=== PATIENT | female | born 1945 | race Caucasian/White ===

== ENCOUNTER 2022-10-01 08:55 | Inpatient (IN) | payer MEDICARE, OTHER ==
[2022-10-01] VITALS (13 sets, daily range): BP systolic 85–154; BP diastolic 62–83; TEMP 98–98.2; O2SAT 91–96
[~2022-10-01] VITALS: Ht 170.2 cm; Wt 112.5 kg
[~2022-10-01 08:55] MED LIST: ETOMIDATE 20 MG/10 ML VIAL ONE
[2022-10-01] MEDS ORDERED: HALOPERIDOL LACTATE 5 MG/1 ML VIAL ONE (09:22)
[2022-10-01] MEDS ORDERED: LORAZEPAM 2 MG/1 ML VIAL ONE ×2 (09:22→11:22)
[2022-10-01 09:49] LABS: ABG BASE EXCESS -0.6 mmol/L; ABG HCO3 24.1 mmol/L; ABG PCO2 39.9 mmHg (35.0-45.0); ABG PH 7.399 (7.350-7.450); ABG PO2 70.1 mmHg (75.0-100.0); ABG SITE LEFT RADIAL; ABG TOTAL HEMOGLOBIN 12.8 G/dL (12.0-16.0); COHb 0.5 % (0.5-1.5); MetHb 0.2 % (0.0-1.5); O2Hb 93.6 % (94.0-97.0); VENT MODE Nasal Cannula
[2022-10-01] MEDS ORDERED: ALBUTEROL SULFATE 2.5 MG/3 ML NEBU ONE (09:52)
[2022-10-01] MEDS ORDERED: IPRATROPIUM BROMIDE 0.5 MG/2.5 ML NEBU ONE (09:52)
[2022-10-01] MEDS ORDERED: LORAZEPAM 2 MG/1 ML VIAL IV ONE ×3 (10:00→14:45)
[2022-10-01] MEDS ORDERED: DILTIAZEM HCL 25 MG IV IV ONE (10:00)
[2022-10-01] MEDS ORDERED: HALOPERIDOL LACTATE 5 MG/1 ML VIAL IM ONE (10:00)
[2022-10-01 10:09] LABS: BASOPHILS % (AUTO) 0.3 % (0.0-2.0); DIFFERENTIAL COMMENT 0; EOSINOPHILS % (AUTO) 0.4 % (0.0-7.0); HEMATOCRIT 37.8 % (31.2-41.9); LYMPHOCYTES # (AUTO) 0.4 K/uL (0.8-4.8); LYMPHOCYTES % (AUTO) 3.8 % (20.5-51.5); MEAN CORPUSCULAR HEMOGLOBIN 29.1 uug (24.7-32.8); MEAN CORPUSCULAR HGB CONC 32 g/dL (32.3-35.6); MEAN CORPUSCULAR VOLUME 91.7 fL (75.5-95.3); MONOCYTES # (AUTO) 0.4 K/uL (0.1-1.30); MONOCYTES % (AUTO) 3.8 % (0.0-11.0); NEUTROPHILS # (AUTO) 9.9 K/uL (1.8-8.9); NEUTROPHILS % (AUTO) 91.7 % (38.5-71.5); PLATELET COUNT (AUTO) 355 K/uL (179-408); RED BLOOD CELL COUNT(AUTO) 4.13 MIL/uL (3.63-4.92); RED CELL DISTRIBUTION WIDTH 18.5 % (12.3-17.7); WHITE BLOOD COUNT (AUTO) 10.8 K/uL (3.8-11.8)
[2022-10-01] MEDS ORDERED: EMPA10TA PO (10:14)
[2022-10-01] MEDS ORDERED: PRAV10TA40 PO (10:14)
[2022-10-01] MEDS ORDERED: ALLOPURINOL PO (10:14)
[2022-10-01] MEDS ORDERED: TRAZ-257 PO (10:14)
[2022-10-01] MEDS ORDERED: DOXE50CA4 PO (10:14)
[2022-10-01] MEDS ORDERED: BUPR1FIL3 SL (10:14)
[2022-10-01] MEDS ORDERED: APIX5TAB PO (10:14)
[2022-10-01] MEDS ORDERED: DILTIAZEM PO (10:14)
[2022-10-01] MEDS ORDERED: CHLO25CA22 PO (10:14)
[2022-10-01] MEDS ORDERED: [UNRECOGNIZED DRUG - OTHER] (10:14)
[2022-10-01] MEDS ORDERED: VENL150C2 PO (10:14)
[2022-10-01 10:20] LABS: LIPASE 39 U/L (73-393)
[2022-10-01 10:22] LABS: ETHANOL < 3 MG/DL (0-10)
[2022-10-01] MEDS ORDERED: DILTIAZEM HCL 25 MG IV ONE (10:28)
[2022-10-01 10:37] LABS: LACTIC ACID 2.1 mmol/L (0.4-2.0)
[2022-10-01 11:06] LABS: CALCIUM 9.1 mg/dL (8.5-10.1); CARBON DIOXIDE 28 mmol/L (21-32); CHLORIDE 101 mmol/L (98-107); CREATININE 1.5 mg/dL (0.6-1.3); GLUCOSE 118 mg/dL (74-106); POTASSIUM 3.7 mmol/L (3.5-5.1); SODIUM SERUM 140 mmol/L (136-145); UREA NITROGEN, BLOOD 27 mg/dL (7-18)
[2022-10-01 11:08] LABS: *BILIRUBIN,URIN NEGATIVE (NEGATIVE); *BLOOD, URINE NEGATIVE (NEGATIVE); *CLARITY,URINE CLEAR (CLEAR); *COLOR,URINE YELLOW (YELLOW); *KETONES,URINE NEGATIVE (NEGATIVE); *PROTEIN,URINE NEGATIVE (NEGATIVE); *UROBILINOGEN,URINE 0.2 E.U./dl (NORMAL); LEUKOCYTE ESTERASE ,URINE NEGATIVE (NEGATIVE); NITRITE, URINE NEGATIVE (NEGATIVE); UGLUCOSE NEGATIVE (NEGATIVE)
[2022-10-01] MEDS ORDERED: MORPHINE SULFATE 4 MG/1 ML DISP.SYRIN ONE (11:13)
[2022-10-01] MEDS ORDERED: IV NORMAL SALINE 1000 ML BAG IV ONE ×2 (11:15→11:45)
[2022-10-01] MEDS ORDERED: methylPREDNISolone SOD SUCC 125 MG/2 ML VIAL IV ONE (11:15)
[2022-10-01] MEDS ORDERED: MORPHINE SULFATE 4 MG/1 ML DISP.SYRIN IV ONE (11:15)
[2022-10-01 11:20] LABS: ALANINE AMINOTRANSFERASE 18 U/L (14-59); ALKALINE PHOSPHATASE 88 U/L (50-136); ASPARTATE AMINOTRANSFERASE 13 U/L (15-37); BILIRUBIN,DIRECT 0.1 mg/dL (0.0-0.2); BILIRUBIN,TOTAL 0.3 mg/dL (0.2-1.0); NT-PRO BNP 1125 pg/mL (0-125); TOTAL PROTEIN, SERUM 7.2 g/dL (6.4-8.2)
[2022-10-01] MEDS ORDERED: methylPREDNISolone SOD SUCC 125 MG/2 ML VIAL ONE (11:20)
[2022-10-01 11:23] LABS: *AMPHETAMINE, URINE NEGATIVE (NEGATIVE); *BARBITURATE, URINE NEGATIVE (NEGATIVE); *BENZODIAZEPINE, URINE POSITIVE (NEGATIVE); *CANNABINOID, URINE NEGATIVE (NEGATIVE); *COCCAINE, URINE NEGATIVE (NEGATIVE); *OPIATE, URINE NEGATIVE (NEGATIVE); *PHENCYCLIDINE SCREEN,URINE NEGATIVE (NEGATIVE); FENTANYL, URINE NEGATIVE (NEGATIVE)
[2022-10-01] MEDS ORDERED: DILTIAZEM HCL IV 125 MG in IV NORMAL SALINE 100 ML IV PRN ×2 (11:45→12:00)
[2022-10-01] MEDS ORDERED: CHLORDIAZEPOXIDE HCL 25 MG CAPSULE PO PRN (12:00)
[2022-10-01] MEDS ORDERED: IV NS 1000 ML 1,000 ML IV PRN (12:00)
[2022-10-01] MEDS ORDERED: ONDANSETRON 4 MG/2 ML VIAL IV PRN (12:00)
[2022-10-01] MEDS ORDERED: MAGNESIUM HYDROXIDE 30 ML LIQUID UDC PO PRN (12:00)
[2022-10-01] MEDS ORDERED: DEXTROSE 50% 50 ML DISP.SYRIN IV PRN (12:00)
[2022-10-01] MEDS ORDERED: ACETAMINOPHEN 325 MG TABLET PO PRN (12:00)
[2022-10-01] MEDS ORDERED: REMEDY ESSENTIAL ZINC PASTE 113 GM TP PRN (12:00)
[2022-10-01] MEDS ORDERED: LORAZEPAM 2 MG/1 ML VIAL IV PRN (12:00)
[2022-10-01] MEDS ORDERED: LEVALBUTEROL HCL NEB 0.63 MG/3 ML NEBU NEB PRN (12:45)
[2022-10-01] MEDS: methylPREDNISolone SOD SUCC 40 MG/ML VIAL IV SCH ×2 (16:21→23:20)
[2022-10-01] MEDS: BLOOD SUGAR DIAGNOSTIC 1 EACH STRIP VI SCH ×2 (16:22→21:00)
[2022-10-01] MEDS ORDERED: ALLO100T56 PO (16:28)
[2022-10-01] MEDS ORDERED: DILT240C99 PO (16:28)
[2022-10-01] MEDS ORDERED: BUME2TAB7 PO (16:32)
[2022-10-01] MEDS ORDERED: MAGN400T41 PO (16:32)
[2022-10-01] MEDS ORDERED: MULT-1119 PO (16:32)
[2022-10-01] MEDS ORDERED: FERR-68 PO (16:32)
[2022-10-01] MEDS ORDERED: POTA-10 PO (16:32)
[2022-10-01] MEDS ORDERED: GABA-532 PO (16:32)
[2022-10-01] MEDS ORDERED: LEVO25TA9 PO (16:32)
[2022-10-01] MEDS: SUBOXONE SL SCH (16:37)
[2022-10-01] MEDS ORDERED: HALOPERIDOL LACTATE 5 MG/1 ML VIAL IM PRN (19:15)
[2022-10-01] MEDS: LORAZEPAM 2 MG/1 ML VIAL IV PRN (20:56)
[2022-10-01] MEDS: ATORVASTATIN 10 MG TABLET PO SCH (20:56)
[2022-10-01] MEDS: HYDROCODONE/APAP 10-325 MG TABLET PO PRN (20:58)
[2022-10-01] MEDS ORDERED: TRAZODONE 100 MG TABLET PO SCH (21:00)
[2022-10-02] VITALS (17 sets, daily range): BP systolic 120–151; BP diastolic 64–88; TEMP 97.5–98.2; O2SAT 93–95
[2022-10-02] MEDS: LORAZEPAM 2 MG/1 ML VIAL IV PRN (03:46)
[2022-10-02] MEDS: HYDROCODONE/APAP 10-325 MG TABLET PO PRN (04:10)
[2022-10-02 05:04] LABS: BASOPHILS % (AUTO) 0.1 % (0.0-2.0); HEMATOCRIT 36.8 % (31.2-41.9); HEMOGLOBIN 11.7 g/dL (10.9-14.3); LYMPHOCYTES # (AUTO) 0.5 K/uL (0.8-4.8); MEAN CORPUSCULAR HEMOGLOBIN 29.1 uug (24.7-32.8); MEAN CORPUSCULAR HGB CONC 32 g/dL (32.3-35.6); MEAN CORPUSCULAR VOLUME 91.6 fL (75.5-95.3); MONOCYTES # (AUTO) 0.1 K/uL (0.1-1.30); MONOCYTES % (AUTO) 1.4 % (0.0-11.0); NEUTROPHILS # (AUTO) 7.1 K/uL (1.8-8.9); NEUTROPHILS % (AUTO) 91.5 % (38.5-71.5); PLATELET COUNT (AUTO) 337 K/uL (179-408); RED BLOOD CELL COUNT(AUTO) 4.02 MIL/uL (3.63-4.92); RED CELL DISTRIBUTION WIDTH 18.7 % (12.3-17.7); WHITE BLOOD COUNT (AUTO) 7.8 K/uL (3.8-11.8)
[2022-10-02 05:23] LABS: CALCIUM 8.8 mg/dL (8.5-10.1); CREATININE 1.3 mg/dL (0.6-1.3); PHOSPHOROUS 3.4 mg/dL (2.5-4.9)
[2022-10-02 05:47] LABS: DIFFERENTIAL COMMENT 1
[2022-10-02] MEDS: BLOOD SUGAR DIAGNOSTIC 1 EACH STRIP VI SCH ×4 (07:05→21:20)
[2022-10-02] MEDS: SUBOXONE SL SCH ×3 (08:18→17:19)
[2022-10-02] MEDS: LEVOTHYROXINE SODIUM 25 MCG TABLET PO SCH (08:18)
[2022-10-02] MEDS: GABAPENTIN 100 MG CAPSULE PO SCH ×3 (08:18→17:19)
[2022-10-02] MEDS: MAGNESIUM OXIDE 400 MG TABLET PO SCH (08:19)
[2022-10-02] MEDS: MULTIVITAMINS,THERAPEUTIC TABLET PO SCH (08:19)
[2022-10-02] MEDS: ALLOPURINOL 100 MG TABLET PO SCH (08:19)
[2022-10-02] MEDS: APIXABAN 5 MG TABLET PO SCH ×2 (08:19→17:21)
[2022-10-02] MEDS: FERROUS SULFATE 325 MG TABEC PO SCH ×2 (08:19→17:19)
[2022-10-02] MEDS: GLUCERNA SHAKE 237 ML CAN PO SCH ×2 (08:22→17:20)
[2022-10-02] MEDS: methylPREDNISolone SOD SUCC 125 MG/2 ML VIAL IV SCH ×3 (08:22→21:11)
[2022-10-02] MEDS ORDERED: DOXEPIN 50 MG CAPSULE PO SCH (09:00)
[2022-10-02] MEDS ORDERED: ALLOPURINOL 100 MG TABLET PO SCH (09:00)
[2022-10-02] MEDS ORDERED: DOXEPIN 25 MG CAPSULE PO SCH (09:00)
[2022-10-02] MEDS ORDERED: Medication Not On Formulary EA (Pravastatin Sodium 1 TAB) PO SCH (09:00)
[2022-10-02] MEDS ORDERED: VENLAFAXINE XR 150 MG CAP.SR.24H PO SCH (09:00)
[2022-10-02] MEDS ORDERED: ALLOPURINOL PO SCH (09:00)
[2022-10-02] MEDS ORDERED: VENLAFAXINE XR 75 MG TAB.ER.24H PO SCH (09:00)
[2022-10-02] MEDS ORDERED: Empagliflozin (Jardiance) 10 MG) PO SCH (09:00)
[2022-10-02] MEDS: DILTIAZEM HCL CD 240 MG CAP.SR.24H PO SCH (09:10)
[2022-10-02] MEDS: DIGOXIN 500 MCG/2 ML AMP IV SCH ×3 (09:57→21:10)
[2022-10-02] MEDS ORDERED: CHLORDIAZEPOXIDE HCL 25 MG CAPSULE PO PRN (10:45)
[2022-10-02] MEDS ORDERED: DOXEPIN 25 MG CAPSULE PO PRN (10:45)
[2022-10-02] MEDS ORDERED: DOXEPIN 100 MG CAPSULE PO PRN (11:00)
[2022-10-02] MEDS: INSULIN REGULAR, HUMAN 300 UNIT/3 ML VIAL SQ PRN ×3 (12:04→21:33)
[2022-10-02] MEDS: CLONIDINE HCL 0.1 MG TABLET PO SCH (21:08)
[2022-10-02] MEDS: ATORVASTATIN 10 MG TABLET PO SCH (21:08)
[2022-10-03] VITALS: BP 126/89; TEMP 98; O2SAT 94
[2022-10-03 04:00] VITALS: BP 133/83; TEMP 97.7; O2SAT 94
[2022-10-03 04:50] LABS: BASOPHILS % (AUTO) 0.1 % (0.0-2.0); EOSINOPHILS % (AUTO) 0.1 % (0.0-7.0); HEMATOCRIT 38.7 % (31.2-41.9); LYMPHOCYTES # (AUTO) 0.6 K/uL (0.8-4.8); LYMPHOCYTES % (AUTO) 4.6 % (20.5-51.5); MEAN CORPUSCULAR HEMOGLOBIN 28.8 uug (24.7-32.8); MEAN CORPUSCULAR HGB CONC 31 g/dL (32.3-35.6); MEAN CORPUSCULAR VOLUME 93.3 fL (75.5-95.3); MONOCYTES # (AUTO) 0.2 K/uL (0.1-1.30); MONOCYTES % (AUTO) 1.6 % (0.0-11.0); NEUTROPHILS % (AUTO) 93.6 % (38.5-71.5); PLATELET COUNT (AUTO) 402 K/uL (179-408); RED BLOOD CELL COUNT(AUTO) 4.15 MIL/uL (3.63-4.92); RED CELL DISTRIBUTION WIDTH 19.1 % (12.3-17.7); WHITE BLOOD COUNT (AUTO) 13.9 K/uL (3.8-11.8)
[2022-10-03 04:55] LABS: DIFFERENTIAL COMMENT 1
[2022-10-03 04:58] LABS: CALCIUM 9.1 mg/dL (8.5-10.1); CREATININE 1.3 mg/dL (0.6-1.3); POTASSIUM 4.2 mmol/L (3.5-5.1)
[2022-10-03] MEDS ORDERED: HYDROCODONE/APAP 10-325 MG TABLET PO PRN (06:00)
[2022-10-03] MEDS: LEVOTHYROXINE SODIUM 25 MCG TABLET PO SCH (06:10)
[2022-10-03] MEDS: methylPREDNISolone SOD SUCC 125 MG/2 ML VIAL IV SCH (06:10)
[2022-10-03] MEDS ORDERED: CHLORDIAZEPOXIDE HCL 25 MG CAPSULE PO PRN (06:45)
[2022-10-03] MEDS: BLOOD SUGAR DIAGNOSTIC 1 EACH STRIP VI SCH ×4 (07:37→21:58)
[2022-10-03] MEDS ORDERED: VENLAFAXINE XR 75 MG TAB.ER.24H PO SCH (09:00)
[2022-10-03] MEDS: GABAPENTIN 100 MG CAPSULE PO SCH ×3 (09:09→18:07)
[2022-10-03] MEDS: ARIPIPRAZOLE 5 MG TABLET PO SCH (09:09)
[2022-10-03] MEDS: MAGNESIUM OXIDE 400 MG TABLET PO SCH (09:09)
[2022-10-03] MEDS: MULTIVITAMINS,THERAPEUTIC TABLET PO SCH (09:09)
[2022-10-03] MEDS: ALLOPURINOL 100 MG TABLET PO SCH (09:09)
[2022-10-03] MEDS: FERROUS SULFATE 325 MG TABEC PO SCH ×2 (09:10→18:07)
[2022-10-03] MEDS: VENLAFAXINE XR 150 MG CAP.SR.24H PO SCH (09:14)
[2022-10-03] MEDS: GLUCERNA SHAKE 237 ML CAN PO SCH ×2 (09:17→18:08)
[2022-10-03] MEDS: APIXABAN 5 MG TABLET PO SCH ×2 (09:18→18:09)
[2022-10-03] MEDS: DILTIAZEM HCL CD 240 MG CAP.SR.24H PO SCH (09:20)
[2022-10-03] MEDS: CLONIDINE HCL 0.1 MG TABLET PO SCH ×2 (09:21→20:56)
[2022-10-03] MEDS: SUBOXONE SL SCH ×3 (11:14→18:12)
[2022-10-03 11:31] VITALS: BP 105/53; TEMP 97.7; O2SAT 91
[2022-10-03] MEDS: INSULIN REGULAR, HUMAN 300 UNIT/3 ML VIAL SQ PRN ×3 (12:45→22:00)
[2022-10-03 16:05] VITALS: BP 134/64; TEMP 97.5; O2SAT 95
[2022-10-03 20:00] VITALS: BP 116/64; TEMP 97.8; O2SAT 96
[2022-10-03] MEDS: ATORVASTATIN 10 MG TABLET PO SCH (20:56)
[2022-10-04] VITALS (8 sets, daily range): BP systolic 109–121; BP diastolic 47–91; TEMP 97.6–98.5; O2SAT 93–97
[2022-10-04] MEDS: LEVOTHYROXINE SODIUM 25 MCG TABLET PO SCH (06:05)
[2022-10-04 06:16] LABS: HEMATOCRIT 37.4 % (31.2-41.9); HEMOGLOBIN 11.5 g/dL (10.9-14.3); LYMPHOCYTES # (AUTO) 1.1 K/uL (0.8-4.8); LYMPHOCYTES % (AUTO) 7.5 % (20.5-51.5); MEAN CORPUSCULAR HEMOGLOBIN 28.8 uug (24.7-32.8); MEAN CORPUSCULAR HGB CONC 31 g/dL (32.3-35.6); MEAN CORPUSCULAR VOLUME 93.5 fL (75.5-95.3); MONOCYTES # (AUTO) 0.9 K/uL (0.1-1.30); MONOCYTES % (AUTO) 5.9 % (0.0-11.0); NEUTROPHILS # (AUTO) 12.6 K/uL (1.8-8.9); NEUTROPHILS % (AUTO) 86.6 % (38.5-71.5); PLATELET COUNT (AUTO) 410 K/uL (179-408); RED CELL DISTRIBUTION WIDTH 18.2 % (12.3-17.7); WHITE BLOOD COUNT (AUTO) 14.5 K/uL (3.8-11.8)
[2022-10-04] MEDS: BLOOD SUGAR DIAGNOSTIC 1 EACH STRIP VI SCH ×3 (06:21→17:42)
[2022-10-04] MEDS: INSULIN REGULAR, HUMAN 300 UNIT/3 ML VIAL SQ PRN ×3 (06:22→17:45)
[2022-10-04 06:29] LABS: DIFFERENTIAL COMMENT 1
[2022-10-04 06:36] LABS: CALCIUM 8.8 mg/dL (8.5-10.1); CARBON DIOXIDE 31 mmol/L (21-32); CHLORIDE 104 mmol/L (98-107); CREATININE 1.6 mg/dL (0.6-1.3); GLUCOSE 148 mg/dL (74-106); POTASSIUM 4.5 mmol/L (3.5-5.1); SODIUM SERUM 140 mmol/L (136-145); UREA NITROGEN, BLOOD 44 mg/dL (7-18)
[2022-10-04] MEDS ORDERED: predniSONE 20 MG TABLET PO SCH (08:00)
[2022-10-04] MEDS: SUBOXONE SL SCH ×5 (09:00→18:33)
[2022-10-04] MEDS: DILTIAZEM HCL CD 240 MG CAP.SR.24H PO SCH (10:19)
[2022-10-04] MEDS: ARIPIPRAZOLE 5 MG TABLET PO SCH (10:19)
[2022-10-04] MEDS: FERROUS SULFATE 325 MG TABEC PO SCH ×2 (10:20→17:43)
[2022-10-04] MEDS: VENLAFAXINE XR 150 MG CAP.SR.24H PO SCH (10:21)
[2022-10-04] MEDS: MAGNESIUM OXIDE 400 MG TABLET PO SCH (10:21)
[2022-10-04] MEDS: MULTIVITAMINS,THERAPEUTIC TABLET PO SCH (10:22)
[2022-10-04] MEDS: GABAPENTIN 100 MG CAPSULE PO SCH ×3 (10:22→17:43)
[2022-10-04] MEDS: ALLOPURINOL 100 MG TABLET PO SCH (10:22)
[2022-10-04] MEDS: APIXABAN 5 MG TABLET PO SCH ×2 (10:24→17:42)
[2022-10-04] MEDS: GLUCERNA SHAKE 237 ML CAN PO SCH ×2 (10:24→17:00)
[2022-10-04] MEDS: CLONIDINE HCL 0.1 MG TABLET PO SCH (10:26)
[2022-10-04] MEDS ORDERED: FERR325T28 PO (16:59)
[2022-10-04] MEDS ORDERED: ALLO100T PO ×2 (16:59→22:49)
[2022-10-04] MEDS ORDERED: INSU100V28 SQ ×2 (16:59→22:49)
[2022-10-04] MEDS ORDERED: ATOR10TA PO ×2 (16:59→22:49)
[2022-10-04] MEDS ORDERED: GABA-532 PO (16:59)
[2022-10-04] MEDS ORDERED: MAGN400O6 PO ×2 (16:59→22:49)
[2022-10-04] MEDS ORDERED: MAGN400T30 PO (16:59)
[2022-10-04] MEDS ORDERED: MULT-24 PO ×2 (16:59→22:49)
[2022-10-04] MEDS ORDERED: CHLO25CA22 PO ×2 (16:59→22:49)
[2022-10-04] MEDS ORDERED: Blood Sugar Diagnostic VI (16:59)
[2022-10-04] MEDS ORDERED: ARIP5TAB10 PO (16:59)
[2022-10-04] MEDS ORDERED: PRED20TA PO ×2 (16:59→22:49)
[2022-10-04] MEDS ORDERED: ACET325T53 PO (16:59)
[2022-10-04] MEDS ORDERED: LEVO25TA9 PO ×2 (16:59→22:49)
[2022-10-04] MEDS ORDERED: Patient May Use Own Med- Md Ok PO (16:59)
[2022-10-04] MEDS ORDERED: VENL150C2 PO ×2 (16:59→22:49)
[2022-10-04] MEDS ORDERED: Patient May Use Own Med- Md Ok SL (16:59)
[2022-10-04] MEDS ORDERED: DILT240C88 PO (16:59)
[2022-10-04] MEDS ORDERED: DOXE100C10 PO ×2 (16:59→22:49)
[2022-10-04] MEDS ORDERED: CLON0.1T PO ×2 (16:59→22:49)
[2022-10-04] MEDS ORDERED: LEVA0.635 NEB (16:59)
[2022-10-04] MEDS ORDERED: ACET-2030 PO ×2 (22:49)
[2022-10-04] MEDS ORDERED: FERR-56 PO (22:49)
[2022-10-04] MEDS ORDERED: APIX5TAB4 PO (22:49)
[2022-10-04] MEDS ORDERED: DILT30TA35 PO (22:49)
[2022-10-04] MEDS ORDERED: BLOO-360 IN (22:49)
[2022-10-04] MEDS ORDERED: MAGN400T26 PO (22:49)
[2022-10-04] MEDS ORDERED: GABA300C PO (22:49)
[2022-10-04] MEDS ORDERED: ARIP5TAB59 PO (22:49)
[2022-10-04] MEDS ORDERED: ONDA4TAB5 PO (22:49)
[2022-10-04] MEDS ORDERED: DEXT50DI8 IV (22:49)
[2022-10-04] MEDS ORDERED: ZINC113P3 TP (22:49)
[2022-10-04] MEDS ORDERED: LEVA0.6320 IH (22:49)
== END 2022-10-04 18:50 | DRG 308 ==
LOC: ER 08:55 → CCU 12:32 → TELE3 10-03 07:40
PROVIDERS: ADMIT Nurse Practitioner Acute Care; ATTEND Nurse Practitioner Acute Care
DX: I48.91 Unspecified atrial fibrillation (principal); J96.01 Acute respiratory failure with hypoxia; N17.0 Acute kidney failure with tubular necrosis; J44.1 Chronic obstructive pulmonary disease with (acute) exacerbation; E87.20 Acidosis, unspecified; F33.2 Major depressive disorder, recurrent severe without psychotic features; F11.20 Opioid dependence, uncomplicated; R45.851 Suicidal ideations; E44.0 Moderate protein-calorie malnutrition; M48.54XA Collapsed vertebra, not elsewhere classified, thoracic region, initial encounter for fracture; I10 Essential (primary) hypertension; F41.1 Generalized anxiety disorder; Z98.1 Arthrodesis status; E66.9 Obesity, unspecified; Z68.38 Body mass index [BMI] 38.0-38.9, adult; Z79.01 Long term (current) use of anticoagulants; E11.9 Type 2 diabetes mellitus without complications; Z79.84 Long term (current) use of oral hypoglycemic drugs; E88.09 Other disorders of plasma-protein metabolism, not elsewhere classified; E78.5 Hyperlipidemia, unspecified; G89.4 Chronic pain syndrome; F91.9 Conduct disorder, unspecified; K44.9 Diaphragmatic hernia without obstruction or gangrene; M48.04 Spinal stenosis, thoracic region; Z79.899 Other long term (current) drug therapy; Z20.822 Contact with and (suspected) exposure to COVID-19; K59.00 Constipation, unspecified; E03.9 Hypothyroidism, unspecified; Z79.4 Long term (current) use of insulin; Z79.890 Hormone replacement therapy
CPT/HCPCS: 36415; 36600; 70450; 71045; 83605; 83690; 83735; 84100; 84484; 85025; 87040; 93005; 93307; A4663; C1758; G0378; G0480; J1160; J1630; J1815; J2060; J2270; J2920; J2930; J3490; J3590; J7040; J7512; J8499

== ENCOUNTER 2022-10-04 19:00 | Inpatient (IN) | payer MEDICARE, OTHER ==
[~2022-10-04] VITALS: Ht 154.9 cm; Wt 113.9 kg
[~2022-10-04 19:00] MED LIST changes: +ACET325T53 PO; +ALLO100T PO; +ALLO100T56 PO; +APIX5TAB PO; +ARIP5TAB10 PO; +ATOR10TA PO; +BUME2TAB7 PO; +BUPR1FIL3 SL; +Blood Sugar Diagnostic VI; +CHLO25CA22 PO; +CLON0.1T PO; +DILT240C88 PO; +DILT240C99 PO; +DOXE100C10 PO; +DOXE50CA4 PO; +EMPA10TA PO; -ETOMIDATE 20 MG/10 ML VIAL ONE; +FERR-68 PO; +FERR325T28 PO; +GABA-532 PO; +INSU100V28 SQ; +LEVA0.635 NEB; +LEVO25TA9 PO; +MAGN400O6 PO; +MAGN400T30 PO; +MAGN400T41 PO; +MULT-1119 PO; +MULT-24 PO; +POTA-10 PO; +PRAV10TA40 PO; +PRED20TA PO; +Patient May Use Own Med- Md Ok PO; +Patient May Use Own Med- Md Ok SL; +TRAZ-257 PO; +VENL150C2 PO
[2022-10-04 20:00] VITALS: BP 139/74; TEMP 98.6; O2SAT 93
[2022-10-04] MEDS ORDERED: DILT30TA35 PO (22:49)
[2022-10-04] MEDS ORDERED: APIX5TAB4 PO (22:49)
[2022-10-04] MEDS ORDERED: MAGN400O6 PO (22:49)
[2022-10-04] MEDS ORDERED: MAGN400T26 PO (22:49)
[2022-10-04] MEDS ORDERED: GABA300C PO (22:49)
[2022-10-04] MEDS ORDERED: ZINC113P3 TP (22:49)
[2022-10-04] MEDS ORDERED: INSU100V28 SQ (22:49)
[2022-10-04] MEDS ORDERED: MULT-24 PO (22:49)
[2022-10-04] MEDS ORDERED: ACET-2030 PO ×2 (22:49)
[2022-10-04] MEDS ORDERED: BLOO-360 IN (22:49)
[2022-10-04] MEDS ORDERED: ONDA4TAB5 PO (22:49)
[2022-10-04] MEDS ORDERED: DEXT50DI8 IV (22:49)
[2022-10-04] MEDS ORDERED: ATOR10TA PO (22:49)
[2022-10-04] MEDS ORDERED: ALLO100T PO (22:49)
[2022-10-04] MEDS ORDERED: CHLO25CA22 PO (22:49)
[2022-10-04] MEDS ORDERED: CLON0.1T PO (22:49)
[2022-10-04] MEDS ORDERED: DOXE100C10 PO (22:49)
[2022-10-04] MEDS ORDERED: PRED20TA PO (22:49)
[2022-10-04] MEDS ORDERED: LEVA0.6320 IH (22:49)
[2022-10-04] MEDS ORDERED: ARIP5TAB59 PO (22:49)
[2022-10-04] MEDS ORDERED: VENL150C2 PO (22:49)
[2022-10-04] MEDS ORDERED: FERR-56 PO (22:49)
[2022-10-04] MEDS ORDERED: LEVO25TA9 PO (22:49)
[2022-10-05] MEDS ORDERED: LEVALBUTEROL HCL NEB 0.63 MG/3 ML NEBU NEB PRN (01:00)
[2022-10-05] MEDS ORDERED: MAGNESIUM HYDROXIDE 30 ML LIQUID UDC PO PRN (01:00)
[2022-10-05] MEDS ORDERED: ALBUTEROL SULFATE 1.25 MG/3 ML NEBU NEB PRN ×2 (01:15→08:00)
[2022-10-05] MEDS: LEVOTHYROXINE SODIUM 25 MCG TABLET PO SCH (06:48)
[2022-10-05] MEDS: ACETAMINOPHEN 325 MG TABLET PO PRN (06:48)
[2022-10-05 07:41] VITALS: BP 105/52; TEMP 97.9; O2SAT 95
[2022-10-05] MEDS: SUBOXONE SL SCH ×3 (08:49→16:55)
[2022-10-05] MEDS: FERROUS SULFATE 325 MG TABEC PO SCH ×2 (08:50→16:55)
[2022-10-05] MEDS: GABAPENTIN 300 MG CAPSULE PO SCH ×3 (08:50→16:55)
[2022-10-05] MEDS: MAGNESIUM OXIDE 400 MG TABLET PO SCH (08:50)
[2022-10-05] MEDS: APIXABAN 5 MG TABLET PO SCH ×2 (08:50→16:56)
[2022-10-05] MEDS: ARIPIPRAZOLE 5 MG TABLET PO SCH (08:50)
[2022-10-05] MEDS: ALLOPURINOL 100 MG TABLET PO SCH (08:50)
[2022-10-05] MEDS: predniSONE 20 MG TABLET PO SCH (08:58)
[2022-10-05] MEDS: MULTIVITAMINS,THERAPEUTIC TABLET PO SCH (08:58)
[2022-10-05] MEDS: DILTIAZEM HCL CD 240 MG CAP.SR.24H PO SCH (08:58)
[2022-10-05] MEDS: CLONIDINE HCL 0.1 MG TABLET PO SCH ×2 (08:58→21:08)
[2022-10-05] MEDS: VENLAFAXINE XR 150 MG CAP.SR.24H PO SCH (08:59)
[2022-10-05] MEDS ORDERED: DOXEPIN 50 MG CAPSULE PO SCH (09:00)
[2022-10-05] MEDS ORDERED: Medication Not On Formulary EA (Empagliflozin (Jardiance) 10 MG) PO SCH (09:00)
[2022-10-05] MEDS ORDERED: TRAZODONE 100 MG TABLET PO SCH ×2 (09:00)
[2022-10-05] MEDS ORDERED: Medication Not On Formulary EA (Pravastatin Sodium 1 TAB) PO SCH (09:00)
[2022-10-05] MEDS ORDERED: BUMETANIDE 1 MG TABLET PO SCH ×2 (09:00)
[2022-10-05] MEDS ORDERED: Medication Not On Formulary EA ([Patient May Use Own Med- Md Ok] 1 EA) PO SCH (09:00)
[2022-10-05 14:58] VITALS: BP 117/72; TEMP 98; O2SAT 96
[2022-10-05 15:38] LABS: *CLARITY,URINE CLOUDY (CLEAR); *COLOR,URINE BROWN (YELLOW); PH,URINE 5.5 (5.0-8.0)
[2022-10-05 15:39] LABS: *BLOOD, URINE 3+ (NEGATIVE); *PROTEIN,URINE 3+ (NEGATIVE); UGLUCOSE 3+ (NEGATIVE)
[2022-10-05 15:40] LABS: *BILIRUBIN,URIN 3+ (NEGATIVE); *KETONES,URINE 1+ (NEGATIVE); *UROBILINOGEN,URINE >=8.0 E.U./dl (NORMAL); LEUKOCYTE ESTERASE ,URINE 3+ (NEGATIVE); NITRITE, URINE POSITIVE (NEGATIVE)
[2022-10-05 15:54] LABS: BACTERIA,URINE MODERATE /HPF (NONE SEEN); RBC,URINE TNTC /HPF (0-3); WBC,URINE 20-50 /HPF (0-3)
[2022-10-05] MEDS: CEFTRIAXONE 1 G in IV DEXTROSE 5% 50 ML IV SCH (18:03)
[2022-10-05 20:00] VITALS: BP 112/64; TEMP 98.5; O2SAT 95
[2022-10-05] MEDS: ATORVASTATIN 10 MG TABLET PO SCH (21:07)
[2022-10-06] VITALS (7 sets, daily range): BP systolic 97–132; BP diastolic 54–75; TEMP 97.4–98.6; O2SAT 94–98
[2022-10-06] MEDS: DOXEPIN 100 MG CAPSULE PO PRN ×2 (00:19→21:13)
[2022-10-06] MEDS: LEVOTHYROXINE SODIUM 25 MCG TABLET PO SCH (06:35)
[2022-10-06] MEDS: predniSONE 20 MG TABLET PO SCH (08:33)
[2022-10-06] MEDS: ARIPIPRAZOLE 5 MG TABLET PO SCH (08:37)
[2022-10-06] MEDS: GABAPENTIN 300 MG CAPSULE PO SCH ×3 (08:37→16:14)
[2022-10-06] MEDS: MAGNESIUM OXIDE 400 MG TABLET PO SCH (08:37)
[2022-10-06] MEDS: DILTIAZEM HCL CD 240 MG CAP.SR.24H PO SCH (08:37)
[2022-10-06] MEDS: MULTIVITAMINS,THERAPEUTIC TABLET PO SCH (08:38)
[2022-10-06] MEDS: VENLAFAXINE XR 150 MG CAP.SR.24H PO SCH (08:38)
[2022-10-06] MEDS: CLONIDINE HCL 0.1 MG TABLET PO SCH ×2 (08:38→21:12)
[2022-10-06] MEDS: ALLOPURINOL 100 MG TABLET PO SCH (08:38)
[2022-10-06] MEDS: FERROUS SULFATE 325 MG TABEC PO SCH ×2 (08:38→16:13)
[2022-10-06] MEDS: SUBOXONE SL SCH ×3 (08:41→16:15)
[2022-10-06] MEDS: APIXABAN 5 MG TABLET PO SCH ×2 (08:48→16:15)
[2022-10-06 08:57] LABS: BASOPHILS # (AUTO) 0.1 K/UL (0.0-0.2); BASOPHILS % (AUTO) 0.7 % (0.0-2.0); EOSINOPHILS # (AUTO) 0.1 K/uL (0.0-0.7); HEMATOCRIT 37.9 % (31.2-41.9); HEMOGLOBIN 11.8 g/dL (10.9-14.3); LYMPHOCYTES # (AUTO) 2.6 K/uL (0.8-4.8); LYMPHOCYTES % (AUTO) 18.7 % (20.5-51.5); MEAN CORPUSCULAR HEMOGLOBIN 28.9 uug (24.7-32.8); MEAN CORPUSCULAR HGB CONC 31 g/dL (32.3-35.6); MEAN CORPUSCULAR VOLUME 92.9 fL (75.5-95.3); MONOCYTES # (AUTO) 1.1 K/uL (0.1-1.30); MONOCYTES % (AUTO) 8.2 % (0.0-11.0); NEUTROPHILS # (AUTO) 9.7 K/uL (1.8-8.9); NEUTROPHILS % (AUTO) 71.4 % (38.5-71.5); PLATELET COUNT (AUTO) 393 K/uL (179-408); RED BLOOD CELL COUNT(AUTO) 4.08 MIL/uL (3.63-4.92); RED CELL DISTRIBUTION WIDTH 19.2 % (12.3-17.7); WHITE BLOOD COUNT (AUTO) 13.6 K/uL (3.8-11.8)
[2022-10-06 09:00] LABS: DIFFERENTIAL COMMENT 1
[2022-10-06 09:08] LABS: CALCIUM 8.7 mg/dL (8.5-10.1); CARBON DIOXIDE 31 mmol/L (21-32); CHLORIDE 104 mmol/L (98-107); CREATININE 1.4 mg/dL (0.6-1.3); GLUCOSE 129 mg/dL (74-106); MAGNESIUM 2.4 mg/dL (1.8-2.4); PHOSPHOROUS 3.3 mg/dL (2.5-4.9); POTASSIUM 4.1 mmol/L (3.5-5.1); SODIUM SERUM 140 mmol/L (136-145); UREA NITROGEN, BLOOD 39 mg/dL (7-18)
[2022-10-06] MEDS: CHLORDIAZEPOXIDE HCL 25 MG CAPSULE PO PRN ×2 (11:08→16:13)
[2022-10-06] MEDS ORDERED: LORAZEPAM 1 MG TABLET PO PRN (16:30)
[2022-10-06] MEDS: CEFTRIAXONE 1 G in IV DEXTROSE 5% 50 ML IV SCH (17:32)
[2022-10-06] MEDS: ATORVASTATIN 10 MG TABLET PO SCH (21:11)
[2022-10-07 04:00] VITALS: BP 109/64; TEMP 98; O2SAT 93
[2022-10-07] MEDS: LEVOTHYROXINE SODIUM 25 MCG TABLET PO SCH (06:03)
[2022-10-07 07:45] VITALS: BP 112/59; TEMP 98.1; O2SAT 96
[2022-10-07] MEDS: FERROUS SULFATE 325 MG TABEC PO SCH ×2 (08:22→16:21)
[2022-10-07] MEDS: MAGNESIUM OXIDE 400 MG TABLET PO SCH (08:22)
[2022-10-07] MEDS: GABAPENTIN 300 MG CAPSULE PO SCH ×3 (08:22→16:23)
[2022-10-07] MEDS: DILTIAZEM HCL CD 240 MG CAP.SR.24H PO SCH (08:22)
[2022-10-07] MEDS: MULTIVITAMINS,THERAPEUTIC TABLET PO SCH (08:22)
[2022-10-07] MEDS: ALLOPURINOL 100 MG TABLET PO SCH (08:22)
[2022-10-07] MEDS: ARIPIPRAZOLE 5 MG TABLET PO SCH (08:22)
[2022-10-07] MEDS: predniSONE 20 MG TABLET PO SCH (08:22)
[2022-10-07] MEDS: VENLAFAXINE XR 150 MG CAP.SR.24H PO SCH (08:23)
[2022-10-07] MEDS: CLONIDINE HCL 0.1 MG TABLET PO SCH ×2 (08:23→21:32)
[2022-10-07] MEDS: SUBOXONE SL SCH ×4 (09:00→16:39)
[2022-10-07] MEDS: APIXABAN 5 MG TABLET PO SCH ×2 (09:02→16:24)
[2022-10-07] MEDS: CHLORDIAZEPOXIDE HCL 25 MG CAPSULE PO PRN (11:49)
[2022-10-07 16:00] VITALS: BP 107/65; TEMP 97.9; O2SAT 97
[2022-10-07] MEDS: CEFTRIAXONE 1 G in IV DEXTROSE 5% 50 ML IV SCH (17:09)
[2022-10-07 20:00] VITALS: BP 117/82; TEMP 98.7; O2SAT 97
[2022-10-07] MEDS: ATORVASTATIN 10 MG TABLET PO SCH (21:32)
[2022-10-08 04:00] VITALS: BP 108/62; TEMP 98.2; O2SAT 94
[2022-10-08] MEDS: LEVOTHYROXINE SODIUM 25 MCG TABLET PO SCH (06:10)
[2022-10-08 07:28] LABS: BASOPHILS % (AUTO) 0.1 % (0.0-2.0); EOSINOPHILS # (AUTO) 0.1 K/uL (0.0-0.7); HEMATOCRIT 36.5 % (31.2-41.9); HEMOGLOBIN 11.6 g/dL (10.9-14.3); LYMPHOCYTES # (AUTO) 2.3 K/uL (0.8-4.8); LYMPHOCYTES % (AUTO) 19.9 % (20.5-51.5); MEAN CORPUSCULAR HEMOGLOBIN 29.5 uug (24.7-32.8); MEAN CORPUSCULAR HGB CONC 32 g/dL (32.3-35.6); MEAN CORPUSCULAR VOLUME 92.7 fL (75.5-95.3); MONOCYTES # (AUTO) 0.9 K/uL (0.1-1.30); NEUTROPHILS # (AUTO) 8.3 K/uL (1.8-8.9); PLATELET COUNT (AUTO) 380 K/uL (179-408); RED BLOOD CELL COUNT(AUTO) 3.93 MIL/uL (3.63-4.92); WHITE BLOOD COUNT (AUTO) 11.7 K/uL (3.8-11.8)
[2022-10-08 07:34] LABS: DIFFERENTIAL COMMENT 1
[2022-10-08 07:41] LABS: CALCIUM 8.2 mg/dL (8.5-10.1); CARBON DIOXIDE 29 mmol/L (21-32); CHLORIDE 104 mmol/L (98-107); CREATININE 1.3 mg/dL (0.6-1.3); GLUCOSE 103 mg/dL (74-106); MAGNESIUM 2.3 mg/dL (1.8-2.4); PHOSPHOROUS 3.7 mg/dL (2.5-4.9); POTASSIUM 4.3 mmol/L (3.5-5.1); SODIUM SERUM 140 mmol/L (136-145); UREA NITROGEN, BLOOD 30 mg/dL (7-18)
[2022-10-08 09:19] VITALS: BP 111/66; TEMP 97.9; O2SAT 96
[2022-10-08] MEDS: VENLAFAXINE XR 150 MG CAP.SR.24H PO SCH (09:54)
[2022-10-08] MEDS: ALLOPURINOL 100 MG TABLET PO SCH (09:54)
[2022-10-08] MEDS: predniSONE 20 MG TABLET PO SCH (09:54)
[2022-10-08] MEDS: GABAPENTIN 300 MG CAPSULE PO SCH ×3 (09:54→17:34)
[2022-10-08] MEDS: ARIPIPRAZOLE 5 MG TABLET PO SCH (09:54)
[2022-10-08] MEDS: SUBOXONE SL SCH ×3 (09:55→17:34)
[2022-10-08] MEDS: MAGNESIUM OXIDE 400 MG TABLET PO SCH (10:04)
[2022-10-08] MEDS: MULTIVITAMINS,THERAPEUTIC TABLET PO SCH (10:04)
[2022-10-08] MEDS: DILTIAZEM HCL CD 240 MG CAP.SR.24H PO SCH (10:04)
[2022-10-08] MEDS: FERROUS SULFATE 325 MG TABEC PO SCH ×2 (10:04→17:34)
[2022-10-08] MEDS: CLONIDINE HCL 0.1 MG TABLET PO SCH ×2 (10:05→20:34)
[2022-10-08] MEDS: APIXABAN 5 MG TABLET PO SCH ×2 (10:06→17:34)
[2022-10-08] MEDS: CEphaleXIN 250 MG CAPSULE PO SCH ×2 (14:13→22:15)
[2022-10-08 20:19] VITALS: BP 116/59; TEMP 97.8; O2SAT 94
[2022-10-08] MEDS: ATORVASTATIN 10 MG TABLET PO SCH (20:35)
[2022-10-08] MEDS: CHLORDIAZEPOXIDE HCL 25 MG CAPSULE PO PRN (22:40)
[2022-10-09 04:30] VITALS: BP 125/80; TEMP 98.1; O2SAT 96
[2022-10-09] MEDS: CEphaleXIN 250 MG CAPSULE PO SCH ×3 (06:18→21:00)
[2022-10-09] MEDS: LEVOTHYROXINE SODIUM 25 MCG TABLET PO SCH (06:18)
[2022-10-09 06:37] LABS: BASOPHILS % (AUTO) 0.2 % (0.0-2.0); EOSINOPHILS # (AUTO) 0.1 K/uL (0.0-0.7); EOSINOPHILS % (AUTO) 1.2 % (0.0-7.0); HEMATOCRIT 36.3 % (31.2-41.9); HEMOGLOBIN 11.3 g/dL (10.9-14.3); LYMPHOCYTES # (AUTO) 2.1 K/uL (0.8-4.8); LYMPHOCYTES % (AUTO) 18.4 % (20.5-51.5); MEAN CORPUSCULAR HEMOGLOBIN 29.1 uug (24.7-32.8); MEAN CORPUSCULAR HGB CONC 31 g/dL (32.3-35.6); MEAN CORPUSCULAR VOLUME 93.7 fL (75.5-95.3); MONOCYTES # (AUTO) 0.9 K/uL (0.1-1.30); MONOCYTES % (AUTO) 8.1 % (0.0-11.0); NEUTROPHILS # (AUTO) 8.4 K/uL (1.8-8.9); NEUTROPHILS % (AUTO) 72.1 % (38.5-71.5); PLATELET COUNT (AUTO) 393 K/uL (179-408); RED BLOOD CELL COUNT(AUTO) 3.88 MIL/uL (3.63-4.92); WHITE BLOOD COUNT (AUTO) 11.6 K/uL (3.8-11.8)
[2022-10-09 06:41] LABS: DIFFERENTIAL COMMENT 1
[2022-10-09 06:57] LABS: ALANINE AMINOTRANSFERASE 22 U/L (14-59); ALBUMIN 2.6 g/dL (3.4-5.0); ALKALINE PHOSPHATASE 69 U/L (50-136); ASPARTATE AMINOTRANSFERASE 10 U/L (15-37); BILIRUBIN,TOTAL 0.3 mg/dL (0.2-1.0); CALCIUM 8.2 mg/dL (8.5-10.1); CARBON DIOXIDE 32 mmol/L (21-32); CHLORIDE 105 mmol/L (98-107); CREATININE 1.3 mg/dL (0.6-1.3); GLUCOSE 103 mg/dL (74-106); MAGNESIUM 2.3 mg/dL (1.8-2.4); PHOSPHOROUS 3.7 mg/dL (2.5-4.9); POTASSIUM 4.6 mmol/L (3.5-5.1); SODIUM SERUM 141 mmol/L (136-145); TOTAL PROTEIN, SERUM 6.3 g/dL (6.4-8.2); UREA NITROGEN, BLOOD 27 mg/dL (7-18)
[2022-10-09 08:30] VITALS: BP 125/72; TEMP 98.1
[2022-10-09] MEDS: DILTIAZEM HCL CD 240 MG CAP.SR.24H PO SCH (08:32)
[2022-10-09] MEDS: CLONIDINE HCL 0.1 MG TABLET PO SCH ×2 (08:32→21:00)
[2022-10-09] MEDS: VENLAFAXINE XR 150 MG CAP.SR.24H PO SCH (08:33)
[2022-10-09] MEDS: ALLOPURINOL 100 MG TABLET PO SCH (08:54)
[2022-10-09] MEDS: GABAPENTIN 300 MG CAPSULE PO SCH ×3 (08:54→16:04)
[2022-10-09] MEDS: FERROUS SULFATE 325 MG TABEC PO SCH ×2 (08:54→16:12)
[2022-10-09] MEDS: MAGNESIUM OXIDE 400 MG TABLET PO SCH (08:55)
[2022-10-09] MEDS: predniSONE 20 MG TABLET PO SCH (08:55)
[2022-10-09] MEDS: MULTIVITAMINS,THERAPEUTIC TABLET PO SCH (08:55)
[2022-10-09] MEDS: SUBOXONE SL SCH ×3 (08:55→16:12)
[2022-10-09] MEDS: ARIPIPRAZOLE 5 MG TABLET PO SCH (08:55)
[2022-10-09] MEDS: APIXABAN 5 MG TABLET PO SCH ×2 (09:04→16:06)
[2022-10-09 16:00] VITALS: BP 143/80; TEMP 98.5; O2SAT 94
[2022-10-09] MEDS: CHLORDIAZEPOXIDE HCL 25 MG CAPSULE PO PRN (16:04)
[2022-10-09 20:30] VITALS: BP 108/77; TEMP 98.5; O2SAT 96
[2022-10-09] MEDS: NYSTATIN CREAM 30 GM TUBE TOP SCH (20:55)
[2022-10-09] MEDS: DOXEPIN 100 MG CAPSULE PO PRN (21:00)
[2022-10-09] MEDS: ATORVASTATIN 10 MG TABLET PO SCH (21:00)
[2022-10-10 05:06] VITALS: BP 146/80; TEMP 98.2; O2SAT 96
[2022-10-10] MEDS: CEphaleXIN 250 MG CAPSULE PO SCH ×3 (05:49→21:07)
[2022-10-10] MEDS: LEVOTHYROXINE SODIUM 25 MCG TABLET PO SCH (06:02)
[2022-10-10] MEDS: MAGNESIUM OXIDE 400 MG TABLET PO SCH (08:12)
[2022-10-10] MEDS: GABAPENTIN 300 MG CAPSULE PO SCH ×3 (08:13→16:54)
[2022-10-10] MEDS: FERROUS SULFATE 325 MG TABEC PO SCH ×2 (08:13→16:54)
[2022-10-10] MEDS: ALLOPURINOL 100 MG TABLET PO SCH (08:13)
[2022-10-10] MEDS: ARIPIPRAZOLE 5 MG TABLET PO SCH (08:13)
[2022-10-10] MEDS: predniSONE 20 MG TABLET PO SCH (08:13)
[2022-10-10] MEDS: MULTIVITAMINS,THERAPEUTIC TABLET PO SCH (08:13)
[2022-10-10] MEDS: APIXABAN 5 MG TABLET PO SCH ×2 (08:15→16:55)
[2022-10-10] MEDS: NYSTATIN CREAM 30 GM TUBE TOP SCH ×2 (08:17→21:28)
[2022-10-10] MEDS: DILTIAZEM HCL CD 240 MG CAP.SR.24H PO SCH (08:19)
[2022-10-10] MEDS: CLONIDINE HCL 0.1 MG TABLET PO SCH ×2 (08:19→21:06)
[2022-10-10] MEDS: VENLAFAXINE XR 150 MG CAP.SR.24H PO SCH (08:20)
[2022-10-10] MEDS: SUBOXONE SL SCH ×3 (08:21→17:00)
[2022-10-10 08:24] VITALS: BP 137/63; TEMP 97.6; O2SAT 98
[2022-10-10] MEDS: CHLORDIAZEPOXIDE HCL 25 MG CAPSULE PO PRN ×2 (08:30→14:38)
[2022-10-10 09:19] LABS: BASOPHILS % (AUTO) 0.4 % (0.0-2.0); EOSINOPHILS # (AUTO) 0.3 K/uL (0.0-0.7); EOSINOPHILS % (AUTO) 2.4 % (0.0-7.0); HEMATOCRIT 37.6 % (31.2-41.9); HEMOGLOBIN 11.7 g/dL (10.9-14.3); LYMPHOCYTES % (AUTO) 18.9 % (20.5-51.5); MEAN CORPUSCULAR HEMOGLOBIN 29.3 uug (24.7-32.8); MEAN CORPUSCULAR HGB CONC 31 g/dL (32.3-35.6); MEAN CORPUSCULAR VOLUME 94.3 fL (75.5-95.3); MONOCYTES # (AUTO) 0.8 K/uL (0.1-1.30); NEUTROPHILS # (AUTO) 7.4 K/uL (1.8-8.9); NEUTROPHILS % (AUTO) 70.3 % (38.5-71.5); PLATELET COUNT (AUTO) 372 K/uL (179-408); RED BLOOD CELL COUNT(AUTO) 3.99 MIL/uL (3.63-4.92); RED CELL DISTRIBUTION WIDTH 19.3 % (12.3-17.7); WHITE BLOOD COUNT (AUTO) 10.5 K/uL (3.8-11.8)
[2022-10-10 09:25] LABS: ALANINE AMINOTRANSFERASE 26 U/L (14-59); ALBUMIN 2.7 g/dL (3.4-5.0); ALKALINE PHOSPHATASE 88 U/L (50-136); ASPARTATE AMINOTRANSFERASE 14 U/L (15-37); BILIRUBIN,TOTAL 0.2 mg/dL (0.2-1.0); CALCIUM 8.3 mg/dL (8.5-10.1); CARBON DIOXIDE 33 mmol/L (21-32); CHLORIDE 104 mmol/L (98-107); CREATININE 1.6 mg/dL (0.6-1.3); GLUCOSE 116 mg/dL (74-106); MAGNESIUM 2.2 mg/dL (1.8-2.4); PHOSPHOROUS 3.2 mg/dL (2.5-4.9); POTASSIUM 4.1 mmol/L (3.5-5.1); SODIUM SERUM 140 mmol/L (136-145); TOTAL PROTEIN, SERUM 6.2 g/dL (6.4-8.2); UREA NITROGEN, BLOOD 30 mg/dL (7-18)
[2022-10-10 09:29] LABS: DIFFERENTIAL COMMENT 1
[2022-10-10] MEDS ORDERED: MAG HYDROX/AL HYDROX/SIMETH 30 ML LIQUID UDC PO PRN (13:45)
[2022-10-10 16:22] VITALS: BP 124/76; TEMP 98.2; O2SAT 97
[2022-10-10 17:05] VITALS: O2SAT 98
[2022-10-10 18:09] LABS: *BILIRUBIN,URIN NEGATIVE (NEGATIVE); *BLOOD, URINE NEGATIVE (NEGATIVE); *CLARITY,URINE CLEAR (CLEAR); *COLOR,URINE YELLOW (YELLOW); *KETONES,URINE NEGATIVE (NEGATIVE); *PROTEIN,URINE 1+ (NEGATIVE); *UROBILINOGEN,URINE 0.2 E.U./dl (NORMAL); LEUKOCYTE ESTERASE ,URINE NEGATIVE (NEGATIVE); NITRITE, URINE NEGATIVE (NEGATIVE); PH,URINE 5.5 (5.0-8.0); UGLUCOSE 2+ (NEGATIVE)
[2022-10-10 18:22] LABS: *CREATININE,URINE 117.1 mg/dL (30-125)
[2022-10-10 18:27] LABS: BACTERIA,URINE NONE SEEN /HPF (NONE SEEN); RBC,URINE 0-3 /HPF (0-3); SQUAMOUS EPITHELIAL CELL,UR MODERATE /HPF (NONE SEEN); WBC,URINE 0-3 /HPF (0-3)
[2022-10-10 18:28] LABS: YEAST,URINE FEW /HPF (NONE SEEN)
[2022-10-10 20:30] VITALS: BP 138/69; TEMP 98; O2SAT 95
[2022-10-10] MEDS ORDERED: NITROGLYCERIN 0.4 MG/TAB BOTTLE SL PRN (20:30)
[2022-10-10] MEDS: ATORVASTATIN 10 MG TABLET PO SCH (21:06)
[2022-10-10] MEDS: DOXEPIN 100 MG CAPSULE PO PRN (21:08)
[2022-10-10] MEDS: ACETAMINOPHEN 325 MG TABLET PO PRN (21:55)
[2022-10-10] MEDS ORDERED: ZOLPIDEM 5 MG TABLET PO PRN (23:00)
[2022-10-11 03:58] VITALS: O2SAT 98
[2022-10-11] MEDS: CEphaleXIN 250 MG CAPSULE PO SCH (06:50)
[2022-10-11] MEDS: LEVOTHYROXINE SODIUM 25 MCG TABLET PO SCH (06:50)
[2022-10-11] MEDS: SUBOXONE SL SCH ×3 (08:12→17:27)
[2022-10-11] MEDS: APIXABAN 5 MG TABLET PO SCH ×2 (08:13→16:52)
[2022-10-11] MEDS: CHLORDIAZEPOXIDE HCL 25 MG CAPSULE PO PRN ×2 (08:13→14:14)
[2022-10-11] MEDS: FERROUS SULFATE 325 MG TABEC PO SCH ×2 (08:13→16:51)
[2022-10-11] MEDS: ALLOPURINOL 100 MG TABLET PO SCH (08:14)
[2022-10-11] MEDS: MAGNESIUM OXIDE 400 MG TABLET PO SCH (08:14)
[2022-10-11] MEDS: DILTIAZEM HCL CD 240 MG CAP.SR.24H PO SCH (08:14)
[2022-10-11] MEDS: ARIPIPRAZOLE 5 MG TABLET PO SCH (08:14)
[2022-10-11] MEDS: MULTIVITAMINS,THERAPEUTIC TABLET PO SCH (08:14)
[2022-10-11] MEDS: CLONIDINE HCL 0.1 MG TABLET PO SCH ×2 (08:14→20:24)
[2022-10-11] MEDS: VENLAFAXINE XR 150 MG CAP.SR.24H PO SCH (08:15)
[2022-10-11] MEDS: GABAPENTIN 300 MG CAPSULE PO SCH ×3 (08:15→16:51)
[2022-10-11] MEDS: NYSTATIN CREAM 30 GM TUBE TOP SCH ×2 (08:16→20:24)
[2022-10-11] MEDS ORDERED: HYDROXYZINE PAMOATE 25 MG CAPSULE PO PRN (11:45)
[2022-10-11] MEDS ORDERED: FUROSEMIDE 40 MG TABLET PO ONE (14:15)
[2022-10-11 17:29] VITALS: O2SAT 98
[2022-10-11] MEDS: ATORVASTATIN 10 MG TABLET PO SCH (20:23)
[2022-10-11] MEDS: DOXEPIN 100 MG CAPSULE PO PRN (21:04)
[2022-10-11 21:40] VITALS: BP 115/65; TEMP 98.6; O2SAT 94
[2022-10-12 00:36] VITALS: BP 117/72; TEMP 97.7; O2SAT 95
[2022-10-12 04:00] VITALS: BP 101/64; TEMP 98.5; O2SAT 92
[2022-10-12] MEDS: LEVOTHYROXINE SODIUM 25 MCG TABLET PO SCH (06:02)
[2022-10-12 06:23] LABS: BASOPHILS % (AUTO) 0.4 % (0.0-2.0); EOSINOPHILS # (AUTO) 0.2 K/uL (0.0-0.7); HEMATOCRIT 35.7 % (31.2-41.9); HEMOGLOBIN 11.3 g/dL (10.9-14.3); LYMPHOCYTES # (AUTO) 2.3 K/uL (0.8-4.8); LYMPHOCYTES % (AUTO) 22.5 % (20.5-51.5); MEAN CORPUSCULAR HEMOGLOBIN 29.7 uug (24.7-32.8); MEAN CORPUSCULAR HGB CONC 32 g/dL (32.3-35.6); MEAN CORPUSCULAR VOLUME 94.2 fL (75.5-95.3); MONOCYTES # (AUTO) 0.8 K/uL (0.1-1.30); MONOCYTES % (AUTO) 8.2 % (0.0-11.0); NEUTROPHILS # (AUTO) 6.8 K/uL (1.8-8.9); NEUTROPHILS % (AUTO) 66.9 % (38.5-71.5); PLATELET COUNT (AUTO) 323 K/uL (179-408); RED BLOOD CELL COUNT(AUTO) 3.79 MIL/uL (3.63-4.92); RED CELL DISTRIBUTION WIDTH 19.8 % (12.3-17.7); WHITE BLOOD COUNT (AUTO) 10.1 K/uL (3.8-11.8)
[2022-10-12 06:39] LABS: DIFFERENTIAL COMMENT 1
[2022-10-12 06:48] LABS: ALANINE AMINOTRANSFERASE 27 U/L (14-59); ALBUMIN 2.5 g/dL (3.4-5.0); ALKALINE PHOSPHATASE 67 U/L (50-136); ASPARTATE AMINOTRANSFERASE 13 U/L (15-37); BILIRUBIN,TOTAL 0.3 mg/dL (0.2-1.0); CALCIUM 8.3 mg/dL (8.5-10.1); CARBON DIOXIDE 30 mmol/L (21-32); CHLORIDE 107 mmol/L (98-107); CREATININE 1.5 mg/dL (0.6-1.3); GLUCOSE 103 mg/dL (74-106); MAGNESIUM 2.3 mg/dL (1.8-2.4); PHOSPHOROUS 3.9 mg/dL (2.5-4.9); POTASSIUM 4.4 mmol/L (3.5-5.1); SODIUM SERUM 143 mmol/L (136-145); TOTAL PROTEIN, SERUM 6.1 g/dL (6.4-8.2); UREA NITROGEN, BLOOD 30 mg/dL (7-18)
[2022-10-12 07:54] VITALS: BP 103/49; TEMP 98; O2SAT 94
[2022-10-12] MEDS: MULTIVITAMINS,THERAPEUTIC TABLET PO SCH (08:45)
[2022-10-12] MEDS: CLONIDINE HCL 0.1 MG TABLET PO SCH (08:45)
[2022-10-12 08:46] VITALS: BP 103/49
[2022-10-12] MEDS: DILTIAZEM HCL CD 240 MG CAP.SR.24H PO SCH (08:46)
[2022-10-12] MEDS: GABAPENTIN 300 MG CAPSULE PO SCH ×2 (08:46→12:29)
[2022-10-12] MEDS: MAGNESIUM OXIDE 400 MG TABLET PO SCH (08:46)
[2022-10-12] MEDS: APIXABAN 5 MG TABLET PO SCH (08:47)
[2022-10-12] MEDS: NYSTATIN CREAM 30 GM TUBE TOP SCH (08:48)
[2022-10-12] MEDS: SUBOXONE SL SCH ×2 (08:48→12:40)
[2022-10-12] MEDS: ALLOPURINOL 100 MG TABLET PO SCH (08:48)
[2022-10-12] MEDS: VENLAFAXINE XR 150 MG CAP.SR.24H PO SCH (08:49)
[2022-10-12] MEDS: FERROUS SULFATE 325 MG TABEC PO SCH (08:52)
[2022-10-12] MEDS ORDERED: ARIPIPRAZOLE 5 MG TABLET PO SCH (09:00)
[2022-10-12 09:28] LABS: THYROID STIMULATING HORMONE 1.34 mIU/mL (0.358-3.740)
[2022-10-13] MEDS ORDERED: MAGNESIUM OXIDE 400 MG TABLET PO SCH (09:00)
[2022-10-13] MEDS ORDERED: CEPH500T PO (13:35)
== END 2022-10-12 13:20 | disposition home health service (06) | DRG 947 ==
PROVIDERS: ADMIT Physical Medicine & Rehabilitation Pain Medicine; ATTEND Physical Medicine & Rehabilitation Pain Medicine
PROC: 05HF33Z Insertion of Infusion Device into Left Cephalic Vein, Percutaneous Approach (ICD-10-PCS; principal; 2022-10-06)
DX: R53.1 Weakness (principal); I50.33 Acute on chronic diastolic (congestive) heart failure; J96.01 Acute respiratory failure with hypoxia; N17.0 Acute kidney failure with tubular necrosis; D68.59 Other primary thrombophilia; Z68.41 Body mass index [BMI] 40.0-44.9, adult; F03.93 Unspecified dementia, unspecified severity, with mood disturbance; F03.94 Unspecified dementia, unspecified severity, with anxiety; I13.0 Hypertensive heart and chronic kidney disease with heart failure and stage 1 through stage 4 chronic kidney disease, or unspecified chronic kidney disease; I48.20 Chronic atrial fibrillation, unspecified; N39.0 Urinary tract infection, site not specified; F33.2 Major depressive disorder, recurrent severe without psychotic features; E46 Unspecified protein-calorie malnutrition; F03.911 Unspecified dementia, unspecified severity, with agitation; R45.851 Suicidal ideations; F11.20 Opioid dependence, uncomplicated; E03.9 Hypothyroidism, unspecified; E11.22 Type 2 diabetes mellitus with diabetic chronic kidney disease; E66.01 Morbid (severe) obesity due to excess calories; E78.5 Hyperlipidemia, unspecified; F31.9 Bipolar disorder, unspecified; G89.4 Chronic pain syndrome; J44.9 Chronic obstructive pulmonary disease, unspecified; L60.3 Nail dystrophy; M81.0 Age-related osteoporosis without current pathological fracture; N18.9 Chronic kidney disease, unspecified; B96.89 Other specified bacterial agents as the cause of diseases classified elsewhere; Z79.01 Long term (current) use of anticoagulants; Z90.49 Acquired absence of other specified parts of digestive tract; Z90.710 Acquired absence of both cervix and uterus; Z91.81 History of falling; I27.20 Pulmonary hypertension, unspecified; M89.8X9 Other specified disorders of bone, unspecified site; E11.40 Type 2 diabetes mellitus with diabetic neuropathy, unspecified; E86.9 Volume depletion, unspecified; Z79.4 Long term (current) use of insulin; Z98.1 Arthrodesis status; F41.1 Generalized anxiety disorder; M62.81 Muscle weakness (generalized); S80.812A Abrasion, left lower leg, initial encounter; S80.811A Abrasion, right lower leg, initial encounter; X83.8XXA Intentional self-harm by other specified means, initial encounter; Y93.89 Activity, other specified; Y92.9 Unspecified place or not applicable; I87.8 Other specified disorders of veins
CPT/HCPCS: 36415; 83735; 83970; 84100; 84300; 84443; 84484; 85025; 93005; 97535-GO-CO; A4663; A6209; J0696; J7042; J7512; J8499

== ENCOUNTER 2022-10-13 10:18 | Emergency (ER) | payer MEDICARE, OTHER ==
[~2022-10-13] VITALS: Ht 165.1 cm; Wt 113.4 kg
[~2022-10-13 10:18] MED LIST changes: -ALLO100T PO; +BLOO-360 IN; -BUME2TAB7 PO; -Blood Sugar Diagnostic VI; +DEXT50DI8 IV; -DILT240C99 PO; -DOXE100C10 PO; -FERR-68 PO; -MAGN400T41 PO; -MULT-1119 PO; -POTA-10 PO; -PRAV10TA40 PO; -Patient May Use Own Med- Md Ok PO; -Patient May Use Own Med- Md Ok SL; -TRAZ-257 PO; +ZINC113P3 TP
[2022-10-13 10:28] VITALS: O2SAT 92
[2022-10-13] MEDS ORDERED: NEOMY/BACITRA/POLYMYXIN B OINT UD PACKET TP ONE (10:30)
[2022-10-13 11:09] LABS: *BILIRUBIN,URIN NEGATIVE (NEGATIVE); *BLOOD, URINE NEGATIVE (NEGATIVE); *CLARITY,URINE CLEAR (CLEAR); *COLOR,URINE YELLOW (YELLOW); *KETONES,URINE NEGATIVE (NEGATIVE); *PROTEIN,URINE 1+ (NEGATIVE); *UROBILINOGEN,URINE 0.2 E.U./dl (NORMAL); LEUKOCYTE ESTERASE ,URINE NEGATIVE (NEGATIVE); NITRITE, URINE NEGATIVE (NEGATIVE); PH,URINE 5.5 (5.0-8.0)
[2022-10-13 11:11] LABS: BASOPHILS % (AUTO) 0.3 % (0.0-2.0); EOSINOPHILS # (AUTO) 0.2 K/uL (0.0-0.7); EOSINOPHILS % (AUTO) 1.5 % (0.0-7.0); HEMATOCRIT 35.8 % (31.2-41.9); HEMOGLOBIN 10.8 g/dL (10.9-14.3); LYMPHOCYTES # (AUTO) 1.6 K/uL (0.8-4.8); LYMPHOCYTES % (AUTO) 11.4 % (20.5-51.5); MEAN CORPUSCULAR HEMOGLOBIN 28.4 uug (24.7-32.8); MEAN CORPUSCULAR HGB CONC 30 g/dL (32.3-35.6); MEAN CORPUSCULAR VOLUME 94.1 fL (75.5-95.3); MONOCYTES # (AUTO) 0.9 K/uL (0.1-1.30); MONOCYTES % (AUTO) 6.2 % (0.0-11.0); NEUTROPHILS # (AUTO) 11.2 K/uL (1.8-8.9); NEUTROPHILS % (AUTO) 80.6 % (38.5-71.5); PLATELET COUNT (AUTO) 319 K/uL (179-408); RED BLOOD CELL COUNT(AUTO) 3.81 MIL/uL (3.63-4.92); RED CELL DISTRIBUTION WIDTH 19.5 % (12.3-17.7); WHITE BLOOD COUNT (AUTO) 13.9 K/uL (3.8-11.8)
[2022-10-13 11:23] LABS: DIFFERENTIAL COMMENT 1
[2022-10-13 11:23] LABS: UGLUCOSE 2+ (NEGATIVE)
[2022-10-13 11:30] LABS: CALCIUM 8.7 mg/dL (8.5-10.1); CARBON DIOXIDE 29 mmol/L (21-32); CHLORIDE 108 mmol/L (98-107); CREATININE 1.6 mg/dL (0.6-1.3); GLUCOSE 115 mg/dL (74-106); POTASSIUM 3.8 mmol/L (3.5-5.1); SODIUM SERUM 145 mmol/L (136-145); UREA NITROGEN, BLOOD 35 mg/dL (7-18)
[2022-10-13 11:39] LABS: ALANINE AMINOTRANSFERASE 26 U/L (14-59); ALBUMIN 2.9 g/dL (3.4-5.0); ALKALINE PHOSPHATASE 76 U/L (50-136); ASPARTATE AMINOTRANSFERASE 11 U/L (15-37); BILIRUBIN,DIRECT 0.1 mg/dL (0.0-0.2); BILIRUBIN,TOTAL 0.3 mg/dL (0.2-1.0); TOTAL PROTEIN, SERUM 6.4 g/dL (6.4-8.2)
[2022-10-13 12:19] LABS: BACTERIA,URINE FEW /HPF (NONE SEEN); RBC,URINE NONE SEEN /HPF (0-3); SQUAMOUS EPITHELIAL CELL,UR MANY /HPF (NONE SEEN); YEAST,URINE BUDDING YEAST /HPF (NONE SEEN)
[2022-10-13] MEDS ORDERED: FLUCONAZOLE 100 MG TABLET PO ONE (13:30)
[2022-10-13] MEDS ORDERED: CEPH500T PO (13:35)
[2022-10-19] MEDS ORDERED: DOXY100T2 PO (11:19)
[2022-10-19] MEDS ORDERED: PROT30LI PO (11:19)
== END 2022-10-13 13:51 | disposition home or self-care (01) ==
LOC: ER 10:18
DX: S81.811A Laceration without foreign body, right lower leg, initial encounter (principal); R07.89 Other chest pain; R60.0 Localized edema; N18.9 Chronic kidney disease, unspecified; E88.09 Other disorders of plasma-protein metabolism, not elsewhere classified; D72.829 Elevated white blood cell count, unspecified; N39.0 Urinary tract infection, site not specified; I48.91 Unspecified atrial fibrillation; B37.9 Candidiasis, unspecified; I12.9 Hypertensive chronic kidney disease with stage 1 through stage 4 chronic kidney disease, or unspecified chronic kidney disease; E11.22 Type 2 diabetes mellitus with diabetic chronic kidney disease; E78.5 Hyperlipidemia, unspecified; J44.9 Chronic obstructive pulmonary disease, unspecified; E03.9 Hypothyroidism, unspecified; Z79.899 Other long term (current) drug therapy; X58.XXXA Exposure to other specified factors, initial encounter; Y93.89 Activity, other specified; Y92.89 Other specified places as the place of occurrence of the external cause; Y99.8 Other external cause status
CPT/HCPCS: 36415; 71045; 84484; 85025; 93005; A4663

== ENCOUNTER 2022-10-14 09:02 | Inpatient (IN) | payer MEDICARE, OTHER ==
[~2022-10-14] VITALS: Ht 165.1 cm; Wt 112.5 kg
[~2022-10-14 09:02] MED LIST changes: +CEPH500T PO
[2022-10-14 09:53] LABS: BASOPHILS # (AUTO) 0.2 K/UL (0.0-0.2); EOSINOPHILS # (AUTO) 0.1 K/uL (0.0-0.7); EOSINOPHILS % (AUTO) 0.8 % (0.0-7.0); HEMATOCRIT 34.6 % (31.2-41.9); HEMOGLOBIN 10.6 g/dL (10.9-14.3); LYMPHOCYTES # (AUTO) 1.1 K/uL (0.8-4.8); LYMPHOCYTES % (AUTO) 6.4 % (20.5-51.5); MEAN CORPUSCULAR HGB CONC 31 g/dL (32.3-35.6); MEAN CORPUSCULAR VOLUME 94.6 fL (75.5-95.3); MONOCYTES % (AUTO) 6.1 % (0.0-11.0); NEUTROPHILS # (AUTO) 14.7 K/uL (1.8-8.9); NEUTROPHILS % (AUTO) 85.7 % (38.5-71.5); PLATELET COUNT (AUTO) 327 K/uL (179-408); RED BLOOD CELL COUNT(AUTO) 3.65 MIL/uL (3.63-4.92); WHITE BLOOD COUNT (AUTO) 17.1 K/uL (3.8-11.8)
[2022-10-14 10:04] LABS: ALANINE AMINOTRANSFERASE 28 U/L (14-59); ALBUMIN 3.1 g/dL (3.4-5.0); ALKALINE PHOSPHATASE 69 U/L (50-136); ASPARTATE AMINOTRANSFERASE 23 U/L (15-37); BILIRUBIN,DIRECT 0.3 mg/dL (0.0-0.2); CALCIUM 9.1 mg/dL (8.5-10.1); CARBON DIOXIDE 29 mmol/L (21-32); CHLORIDE 106 mmol/L (98-107); CREATININE 1.5 mg/dL (0.6-1.3); GLUCOSE 129 mg/dL (74-106); POTASSIUM 3.9 mmol/L (3.5-5.1); SODIUM SERUM 142 mmol/L (136-145); TOTAL PROTEIN, SERUM 6.5 g/dL (6.4-8.2); UREA NITROGEN, BLOOD 23 mg/dL (7-18)
[2022-10-14 10:34] LABS: DIFFERENTIAL COMMENT 1
[2022-10-14 10:53] LABS: *BILIRUBIN,URIN NEGATIVE (NEGATIVE); *BLOOD, URINE 2+ (NEGATIVE); *CLARITY,URINE CLEAR (CLEAR); *COLOR,URINE YELLOW (YELLOW); *KETONES,URINE TRACE (NEGATIVE); *PROTEIN,URINE 2+ (NEGATIVE); *UROBILINOGEN,URINE 0.2 E.U./dl (NORMAL); LEUKOCYTE ESTERASE ,URINE NEGATIVE (NEGATIVE); NITRITE, URINE NEGATIVE (NEGATIVE); PH,URINE 6.5 (5.0-8.0)
[2022-10-14 10:55] LABS: UGLUCOSE 2+ (NEGATIVE)
[2022-10-14 11:22] LABS: LACTIC ACID 2.3 mmol/L (0.4-2.0)
[2022-10-14 11:39] LABS: BACTERIA,URINE FEW /HPF (NONE SEEN); RBC,URINE 0-3 /HPF (0-3); SQUAMOUS EPITHELIAL CELL,UR FEW /HPF (NONE SEEN); WBC,URINE 0-3 /HPF (0-3); YEAST,URINE BUDDING YEAST /HPF (NONE SEEN)
[2022-10-14] MEDS ORDERED: LEVALBUTEROL HCL NEB 0.63 MG/3 ML NEBU NEB PRN (12:15)
[2022-10-14] MEDS ORDERED: MAGNESIUM HYDROXIDE 30 ML LIQUID UDC PO PRN (12:15)
[2022-10-14] MEDS ORDERED: ACETAMINOPHEN 325 MG TABLET PO PRN (12:15)
[2022-10-14] MEDS ORDERED: ACETAMINOPHEN 325 MG TABLET-SA PATIENTS-PAIN ONLY PO PRN (12:15)
[2022-10-14] MEDS ORDERED: HYDROCODONE/APAP 5-325MG TABLET PO PRN (12:15)
[2022-10-14] MEDS ORDERED: IPRATROPIUM BROMIDE 0.5 MG/2.5 ML NEBU NEB PRN (12:15)
[2022-10-14 12:25] VITALS: BP 125/70; TEMP 98.4; O2SAT 95
[2022-10-14 12:52] LABS: *CREATININE,URINE 69.7 mg/dL (30-125); *URINE TOTAL PROTEIN RANDOM 62.3 mg/dL (<150/24HR)
[2022-10-14] MEDS: ASCORBIC ACID 500 MG TABLET PO SCH (12:55)
[2022-10-14] MEDS: GABAPENTIN 300 MG CAPSULE PO SCH ×2 (12:56→17:13)
[2022-10-14] MEDS: CLONIDINE HCL 0.1 MG TABLET PO SCH ×2 (12:56→20:51)
[2022-10-14] MEDS ORDERED: GABAPENTIN 100 MG CAPSULE PO SCH (13:00)
[2022-10-14] MEDS: DILTIAZEM HCL CD 240 MG CAP.SR.24H PO SCH (13:11)
[2022-10-14] MEDS: ZINC SULFATE 220 MG CAPSULE PO SCH (13:16)
[2022-10-14] MEDS: ONDANSETRON 4 MG/2 ML VIAL IV PRN (13:56)
[2022-10-14] MEDS ORDERED: VANCOMYCIN IV 1,500 MG in IV DEXTROSE 5% 500 ML IV SCH (14:00)
[2022-10-14] MEDS: PIPERACILLIN SODIUM/TAZOBACTAM 3.375 G in IV DEXTROSE 5% 100 ML IV SCH ×2 (14:05→21:35)
[2022-10-14] MEDS ORDERED: OLANZAPINE 10 MG VIAL IM ONE (14:30)
[2022-10-14] MEDS ORDERED: AMIODARONE HCL IV 450 MG in IV DEXTROSE 5% 250 ML IV PRN (16:15)
[2022-10-14] MEDS ORDERED: AMIODARONE HCL IV 150 MG in IV DEXTROSE 5% 100 ML IV ONE (16:15)
[2022-10-14] MEDS: ARIPIPRAZOLE 5 MG TABLET PO SCH (17:13)
[2022-10-14] MEDS: VANCOMYCIN IV 1,500 MG in IV DEXTROSE 5% 500 ML IV SCH (17:48)
[2022-10-14] MEDS ORDERED: PIPERACILLIN/TAZO 2.25 G in IV DEXTROSE 5% 50 ML IV SCH (18:00)
[2022-10-14 20:00] VITALS: BP 95/41; TEMP 98.7; O2SAT 93
[2022-10-14] MEDS ORDERED: OLANZAPINE 10 MG VIAL IM PRN (20:15)
[2022-10-14] MEDS: DOCUSATE SODIUM 100 MG CAPSULE PO SCH (20:50)
[2022-10-14] MEDS: DOXEPIN 100 MG CAPSULE PO SCH (20:51)
[2022-10-14] MEDS: ATORVASTATIN 10 MG TABLET PO SCH (20:51)
[2022-10-14] MEDS ORDERED: DOCUSATE SODIUM 250 MG CAPSULE PO SCH (21:00)
[2022-10-14] MEDS ORDERED: DOXEPIN 50 MG CAPSULE PO SCH (21:00)
[2022-10-15] VITALS (7 sets, daily range): BP systolic 92–151; BP diastolic 33–67; TEMP 97.6–98.4; O2SAT 91–97
[2022-10-15] MEDS: PIPERACILLIN SODIUM/TAZOBACTAM 3.375 G in IV DEXTROSE 5% 100 ML IV SCH ×3 (05:36→22:15)
[2022-10-15] MEDS: LEVOTHYROXINE SODIUM 25 MCG TABLET PO SCH (06:09)
[2022-10-15] MEDS: PANTOPRAZOLE SODIUM 40 MG TABLET.DR PO SCH (06:09)
[2022-10-15 07:39] LABS: BASOPHILS # (AUTO) 0.1 K/UL (0.0-0.2); BASOPHILS % (AUTO) 0.9 % (0.0-2.0); EOSINOPHILS # (AUTO) 0.4 K/uL (0.0-0.7); HEMATOCRIT 30.5 % (31.2-41.9); HEMOGLOBIN 9.6 g/dL (10.9-14.3); LYMPHOCYTES # (AUTO) 2.1 K/uL (0.8-4.8); MEAN CORPUSCULAR HEMOGLOBIN 29.8 uug (24.7-32.8); MEAN CORPUSCULAR HGB CONC 31 g/dL (32.3-35.6); MEAN CORPUSCULAR VOLUME 94.8 fL (75.5-95.3); MONOCYTES # (AUTO) 0.8 K/uL (0.1-1.30); MONOCYTES % (AUTO) 6.8 % (0.0-11.0); NEUTROPHILS # (AUTO) 8.8 K/uL (1.8-8.9); NEUTROPHILS % (AUTO) 72.3 % (38.5-71.5); PLATELET COUNT (AUTO) 264 K/uL (179-408); RED BLOOD CELL COUNT(AUTO) 3.21 MIL/uL (3.63-4.92); RED CELL DISTRIBUTION WIDTH 19.7 % (12.3-17.7); WHITE BLOOD COUNT (AUTO) 12.1 K/uL (3.8-11.8)
[2022-10-15] MEDS ORDERED: FLUCONAZOLE 200 MG/NS 100ML IV 100 MG in PREMIXED 1 EACH IV ONE (07:49)
[2022-10-15 08:25] LABS: DIFFERENTIAL COMMENT 1
[2022-10-15] MEDS ORDERED: ARIPIPRAZOLE 5 MG TABLET PO SCH (09:00)
[2022-10-15] MEDS: ZINC SULFATE 220 MG CAPSULE PO SCH (09:17)
[2022-10-15] MEDS: ASCORBIC ACID 500 MG TABLET PO SCH (09:18)
[2022-10-15] MEDS: ARIPIPRAZOLE 5 MG TABLET PO SCH ×2 (09:18→17:07)
[2022-10-15] MEDS: MULTIVITAMINS,THERAPEUTIC TABLET PO SCH (09:18)
[2022-10-15] MEDS: GABAPENTIN 300 MG CAPSULE PO SCH ×3 (09:18→17:07)
[2022-10-15] MEDS: ALLOPURINOL 100 MG TABLET PO SCH (09:19)
[2022-10-15] MEDS: VENLAFAXINE XR 150 MG CAP.SR.24H PO SCH (09:41)
[2022-10-15] MEDS: DILTIAZEM HCL CD 240 MG CAP.SR.24H PO SCH (09:41)
[2022-10-15 09:59] LABS: ALANINE AMINOTRANSFERASE 30 U/L (14-59); ALBUMIN 2.8 g/dL (3.4-5.0); ALKALINE PHOSPHATASE 63 U/L (50-136); ASPARTATE AMINOTRANSFERASE 25 U/L (15-37); BILIRUBIN,TOTAL 0.7 mg/dL (0.2-1.0); CALCIUM 8.6 mg/dL (8.5-10.1); CARBON DIOXIDE 30 mmol/L (21-32); CHLORIDE 104 mmol/L (98-107); CREATININE 1.6 mg/dL (0.6-1.3); GLUCOSE 146 mg/dL (74-106); MAGNESIUM 2.3 mg/dL (1.8-2.4); POTASSIUM 4.4 mmol/L (3.5-5.1); SODIUM SERUM 139 mmol/L (136-145); TOTAL PROTEIN, SERUM 6.6 g/dL (6.4-8.2); UREA NITROGEN, BLOOD 22 mg/dL (7-18)
[2022-10-15 10:11] LABS: CREATINE KINASE, TOTAL 187 U/L (26-192)
[2022-10-15] MEDS: VANCOMYCIN IV 1,500 MG in IV DEXTROSE 5% 500 ML IV SCH (21:02)
[2022-10-15] MEDS: DOCUSATE SODIUM 100 MG CAPSULE PO SCH (21:42)
[2022-10-15] MEDS: DOXEPIN 100 MG CAPSULE PO SCH (21:42)
[2022-10-15] MEDS: ATORVASTATIN 10 MG TABLET PO SCH (21:42)
[2022-10-16] VITALS: BP 100/52; TEMP 97.9; O2SAT 93
[2022-10-16 04:00] VITALS: BP 132/73; TEMP 98.4; O2SAT 99
[2022-10-16] MEDS: PIPERACILLIN SODIUM/TAZOBACTAM 3.375 G in IV DEXTROSE 5% 100 ML IV SCH (05:15)
[2022-10-16] MEDS: PANTOPRAZOLE SODIUM 40 MG TABLET.DR PO SCH (06:11)
[2022-10-16] MEDS: LEVOTHYROXINE SODIUM 25 MCG TABLET PO SCH (06:11)
[2022-10-16 07:06] LABS: PTH, INTACT 35 pg/mL (15-65)
[2022-10-16 07:20] LABS: BASOPHILS # (AUTO) 0.1 K/UL (0.0-0.2); BASOPHILS % (AUTO) 0.5 % (0.0-2.0); EOSINOPHILS # (AUTO) 0.3 K/uL (0.0-0.7); EOSINOPHILS % (AUTO) 2.7 % (0.0-7.0); HEMATOCRIT 29.7 % (31.2-41.9); HEMOGLOBIN 9.1 g/dL (10.9-14.3); LYMPHOCYTES # (AUTO) 1.8 K/uL (0.8-4.8); LYMPHOCYTES % (AUTO) 15.7 % (20.5-51.5); MEAN CORPUSCULAR HEMOGLOBIN 29.5 uug (24.7-32.8); MEAN CORPUSCULAR HGB CONC 31 g/dL (32.3-35.6); MEAN CORPUSCULAR VOLUME 95.7 fL (75.5-95.3); MONOCYTES # (AUTO) 0.9 K/uL (0.1-1.30); MONOCYTES % (AUTO) 7.7 % (0.0-11.0); NEUTROPHILS # (AUTO) 8.3 K/uL (1.8-8.9); NEUTROPHILS % (AUTO) 73.4 % (38.5-71.5); PLATELET COUNT (AUTO) 323 K/uL (179-408); RED CELL DISTRIBUTION WIDTH 19.9 % (12.3-17.7); WHITE BLOOD COUNT (AUTO) 11.4 K/uL (3.8-11.8)
[2022-10-16 07:24] LABS: CALCIUM 8.1 mg/dL (8.5-10.1); CARBON DIOXIDE 29 mmol/L (21-32); CHLORIDE 104 mmol/L (98-107); CREATININE 1.8 mg/dL (0.6-1.3); GLUCOSE 151 mg/dL (74-106); MAGNESIUM 2.1 mg/dL (1.8-2.4); POTASSIUM 4.6 mmol/L (3.5-5.1); SODIUM SERUM 140 mmol/L (136-145); UREA NITROGEN, BLOOD 22 mg/dL (7-18)
[2022-10-16 07:25] LABS: DIFFERENTIAL COMMENT 1
[2022-10-16] MEDS: ZINC SULFATE 220 MG CAPSULE PO SCH (09:21)
[2022-10-16] MEDS: GABAPENTIN 300 MG CAPSULE PO SCH ×3 (09:21→17:22)
[2022-10-16] MEDS: ALLOPURINOL 100 MG TABLET PO SCH (09:21)
[2022-10-16] MEDS: ASCORBIC ACID 500 MG TABLET PO SCH (09:21)
[2022-10-16] MEDS: ARIPIPRAZOLE 5 MG TABLET PO SCH ×2 (09:21→17:22)
[2022-10-16] MEDS: VENLAFAXINE XR 150 MG CAP.SR.24H PO SCH (09:21)
[2022-10-16] MEDS: MULTIVITAMINS,THERAPEUTIC TABLET PO SCH (09:21)
[2022-10-16] MEDS: DILTIAZEM HCL CD 240 MG CAP.SR.24H PO SCH (09:25)
[2022-10-16 12:00] VITALS: TEMP 97.6
[2022-10-16] MEDS: APIXABAN 5 MG TABLET PO SCH ×2 (12:39→21:10)
[2022-10-16] MEDS: PROTEIN SUPPLEMENT (PROSTAT) 30 ML LIQUID PO SCH ×2 (14:00→17:23)
[2022-10-16] MEDS: ONDANSETRON 4 MG/2 ML VIAL IV PRN (14:28)
[2022-10-16 16:13] VITALS: TEMP 97.8
[2022-10-16 20:29] VITALS: BP 112/55; TEMP 98.3; O2SAT 91
[2022-10-16] MEDS: ATORVASTATIN 10 MG TABLET PO SCH (21:08)
[2022-10-16] MEDS: DOXEPIN 100 MG CAPSULE PO SCH (21:08)
[2022-10-16] MEDS: DOCUSATE SODIUM 100 MG CAPSULE PO SCH (21:08)
[2022-10-16] MEDS: DOXYCYCLINE HYCLATE 100 MG TABLET PO SCH (21:08)
[2022-10-17 04:30] VITALS: BP 124/85; TEMP 98.3; O2SAT 90
[2022-10-17] MEDS: LEVOTHYROXINE SODIUM 25 MCG TABLET PO SCH (06:31)
[2022-10-17] MEDS: PANTOPRAZOLE SODIUM 40 MG TABLET.DR PO SCH (06:31)
[2022-10-17] MEDS: PROTEIN SUPPLEMENT (PROSTAT) 30 ML LIQUID PO SCH ×3 (08:00→17:03)
[2022-10-17] MEDS: GABAPENTIN 300 MG CAPSULE PO SCH ×3 (08:54→17:02)
[2022-10-17] MEDS: ASCORBIC ACID 500 MG TABLET PO SCH (08:54)
[2022-10-17] MEDS: DOXYCYCLINE HYCLATE 100 MG TABLET PO SCH ×2 (08:54→20:24)
[2022-10-17] MEDS: ARIPIPRAZOLE 5 MG TABLET PO SCH ×2 (08:54→17:02)
[2022-10-17] MEDS: ZINC SULFATE 220 MG CAPSULE PO SCH (08:54)
[2022-10-17] MEDS: MULTIVITAMINS,THERAPEUTIC TABLET PO SCH (08:55)
[2022-10-17] MEDS: ALLOPURINOL 100 MG TABLET PO SCH (08:55)
[2022-10-17] MEDS: APIXABAN 5 MG TABLET PO SCH ×2 (08:55→20:23)
[2022-10-17] MEDS: VENLAFAXINE XR 150 MG CAP.SR.24H PO SCH (08:58)
[2022-10-17] MEDS: DILTIAZEM HCL CD 240 MG CAP.SR.24H PO SCH (09:02)
[2022-10-17 12:00] VITALS: BP 121/54; TEMP 98.2; O2SAT 91
[2022-10-17 16:00] VITALS: BP 121/32; TEMP 98.2; O2SAT 94
[2022-10-17] MEDS: CHLORDIAZEPOXIDE HCL 25 MG CAPSULE PO PRN (20:24)
[2022-10-17] MEDS: ATORVASTATIN 10 MG TABLET PO SCH (20:24)
[2022-10-17] MEDS: DOXEPIN 100 MG CAPSULE PO SCH (20:24)
[2022-10-17] MEDS: DOCUSATE SODIUM 100 MG CAPSULE PO SCH (20:24)
[2022-10-18] MEDS: LEVOTHYROXINE SODIUM 25 MCG TABLET PO SCH (06:29)
[2022-10-18] MEDS: PANTOPRAZOLE SODIUM 40 MG TABLET.DR PO SCH (06:29)
[2022-10-18 06:58] LABS: BASOPHILS % (AUTO) 0.4 % (0.0-2.0); EOSINOPHILS # (AUTO) 0.2 K/uL (0.0-0.7); EOSINOPHILS % (AUTO) 2.6 % (0.0-7.0); HEMATOCRIT 28.7 % (31.2-41.9); HEMOGLOBIN 9.1 g/dL (10.9-14.3); LYMPHOCYTES # (AUTO) 2.1 K/uL (0.8-4.8); LYMPHOCYTES % (AUTO) 26.6 % (20.5-51.5); MEAN CORPUSCULAR HEMOGLOBIN 30.4 uug (24.7-32.8); MEAN CORPUSCULAR HGB CONC 32 g/dL (32.3-35.6); MEAN CORPUSCULAR VOLUME 95.7 fL (75.5-95.3); MONOCYTES # (AUTO) 0.9 K/uL (0.1-1.30); MONOCYTES % (AUTO) 11.7 % (0.0-11.0); NEUTROPHILS # (AUTO) 4.6 K/uL (1.8-8.9); NEUTROPHILS % (AUTO) 58.7 % (38.5-71.5); PLATELET COUNT (AUTO) 307 K/uL (179-408); RED BLOOD CELL COUNT(AUTO) 2.99 MIL/uL (3.63-4.92); RED CELL DISTRIBUTION WIDTH 19.7 % (12.3-17.7); WHITE BLOOD COUNT (AUTO) 7.9 K/uL (3.8-11.8)
[2022-10-18 07:10] LABS: DIFFERENTIAL COMMENT 1
[2022-10-18 07:11] LABS: ALANINE AMINOTRANSFERASE 23 U/L (14-59); ALBUMIN 2.7 g/dL (3.4-5.0); ALKALINE PHOSPHATASE 70 U/L (50-136); ASPARTATE AMINOTRANSFERASE 8 U/L (15-37); BILIRUBIN,TOTAL 0.4 mg/dL (0.2-1.0); CALCIUM 8.4 mg/dL (8.5-10.1); CARBON DIOXIDE 32 mmol/L (21-32); CHLORIDE 102 mmol/L (98-107); CREATININE 1.7 mg/dL (0.6-1.3); GLUCOSE 114 mg/dL (74-106); MAGNESIUM 1.9 mg/dL (1.8-2.4); PHOSPHOROUS 2.7 mg/dL (2.5-4.9); POTASSIUM 4.1 mmol/L (3.5-5.1); SODIUM SERUM 139 mmol/L (136-145); TOTAL PROTEIN, SERUM 6.6 g/dL (6.4-8.2); UREA NITROGEN, BLOOD 20 mg/dL (7-18)
[2022-10-18] MEDS: PROTEIN SUPPLEMENT (PROSTAT) 30 ML LIQUID PO SCH ×3 (08:45→17:00)
[2022-10-18] MEDS: DILTIAZEM HCL CD 240 MG CAP.SR.24H PO SCH (09:00)
[2022-10-18] MEDS: DOXYCYCLINE HYCLATE 100 MG TABLET PO SCH ×2 (09:27→20:16)
[2022-10-18] MEDS: GABAPENTIN 300 MG CAPSULE PO SCH ×3 (09:27→16:59)
[2022-10-18] MEDS: MULTIVITAMINS,THERAPEUTIC TABLET PO SCH (09:27)
[2022-10-18] MEDS: ASCORBIC ACID 500 MG TABLET PO SCH (09:27)
[2022-10-18] MEDS: ZINC SULFATE 220 MG CAPSULE PO SCH (09:27)
[2022-10-18] MEDS: ARIPIPRAZOLE 5 MG TABLET PO SCH ×2 (09:28→16:59)
[2022-10-18] MEDS: ALLOPURINOL 100 MG TABLET PO SCH (09:28)
[2022-10-18] MEDS: VENLAFAXINE XR 150 MG CAP.SR.24H PO SCH (09:39)
[2022-10-18] MEDS: APIXABAN 5 MG TABLET PO SCH ×2 (09:45→20:03)
[2022-10-18] MEDS ORDERED: LACTULOSE 20 G/30 ML LIQUID UDC PO ONE (10:00)
[2022-10-18 11:34] VITALS: BP 118/64; TEMP 97.9; O2SAT 99
[2022-10-18 15:57] VITALS: BP 126/66; TEMP 97.7; O2SAT 96
[2022-10-18] MEDS ORDERED: BISACODYL 10 MG SUPP.RECT RC PRN (17:00)
[2022-10-18] MEDS: ATORVASTATIN 10 MG TABLET PO SCH (20:02)
[2022-10-18] MEDS: DOCUSATE SODIUM 100 MG CAPSULE PO SCH (20:16)
[2022-10-18] MEDS: DOXEPIN 100 MG CAPSULE PO SCH (20:16)
[2022-10-18 20:18] VITALS: BP 111/64; TEMP 98.7; O2SAT 90
[2022-10-18] MEDS: CHLORDIAZEPOXIDE HCL 25 MG CAPSULE PO PRN (21:01)
[2022-10-19 04:00] VITALS: BP 123/71; TEMP 98.4; O2SAT 90
[2022-10-19] MEDS: PANTOPRAZOLE SODIUM 40 MG TABLET.DR PO SCH (06:26)
[2022-10-19] MEDS: LEVOTHYROXINE SODIUM 25 MCG TABLET PO SCH (06:26)
[2022-10-19 08:07] LABS: A/G RATIO 0.9 (0.7-1.7); ALBUMIN 2.5 g/dL (2.9-4.4); ALPHA-1-GLOBULIN 0.3 g/dL (0.0-0.4); ALPHA-2-GLOBULIN 0.8 g/dL (0.4-1.0); GAMMA GLOBULIN 0.9 g/dL (0.4-1.8); GLOBULIN, TOTAL 2.9 g/dL (2.2-3.9); M-SPIKE Not Observed g/dL (Not Observed)
[2022-10-19] MEDS: GABAPENTIN 300 MG CAPSULE PO SCH ×2 (08:08→13:09)
[2022-10-19] MEDS: DILTIAZEM HCL CD 240 MG CAP.SR.24H PO SCH (08:08)
[2022-10-19] MEDS: ASCORBIC ACID 500 MG TABLET PO SCH (08:08)
[2022-10-19] MEDS: MULTIVITAMINS,THERAPEUTIC TABLET PO SCH (08:08)
[2022-10-19] MEDS: ALLOPURINOL 100 MG TABLET PO SCH (08:08)
[2022-10-19] MEDS: DOXYCYCLINE HYCLATE 100 MG TABLET PO SCH (08:08)
[2022-10-19] MEDS: ZINC SULFATE 220 MG CAPSULE PO SCH (08:08)
[2022-10-19] MEDS: ARIPIPRAZOLE 5 MG TABLET PO SCH (08:08)
[2022-10-19] MEDS: VENLAFAXINE XR 150 MG CAP.SR.24H PO SCH (08:09)
[2022-10-19] MEDS: APIXABAN 5 MG TABLET PO SCH (08:09)
[2022-10-19] MEDS: PROTEIN SUPPLEMENT (PROSTAT) 30 ML LIQUID PO SCH ×2 (08:10→12:00)
[2022-10-19 08:30] VITALS: O2SAT 94
[2022-10-19 09:51] LABS: ALANINE AMINOTRANSFERASE 23 U/L (14-59); ALBUMIN 2.6 g/dL (3.4-5.0); ALKALINE PHOSPHATASE 77 U/L (50-136); ASPARTATE AMINOTRANSFERASE 25 U/L (15-37); BILIRUBIN,TOTAL 0.2 mg/dL (0.2-1.0); CALCIUM 8.4 mg/dL (8.5-10.1); CARBON DIOXIDE 25 mmol/L (21-32); CHLORIDE 105 mmol/L (98-107); CREATININE 1.6 mg/dL (0.6-1.3); GLUCOSE 127 mg/dL (74-106); MAGNESIUM 1.9 mg/dL (1.8-2.4); PHOSPHOROUS 2.8 mg/dL (2.5-4.9); POTASSIUM 4.4 mmol/L (3.5-5.1); SODIUM SERUM 139 mmol/L (136-145); TOTAL PROTEIN, SERUM 6.8 g/dL (6.4-8.2); UREA NITROGEN, BLOOD 19 mg/dL (7-18)
[2022-10-19 09:57] LABS: BASOPHILS % (AUTO) 0.5 % (0.0-2.0); DIFFERENTIAL COMMENT 0; EOSINOPHILS # (AUTO) 0.3 K/uL (0.0-0.7); EOSINOPHILS % (AUTO) 2.9 % (0.0-7.0); HEMATOCRIT 32.4 % (31.2-41.9); HEMOGLOBIN 9.4 g/dL (10.9-14.3); LYMPHOCYTES # (AUTO) 1.8 K/uL (0.8-4.8); LYMPHOCYTES % (AUTO) 20.6 % (20.5-51.5); MEAN CORPUSCULAR HEMOGLOBIN 29.7 uug (24.7-32.8); MEAN CORPUSCULAR HGB CONC 29 g/dL (32.3-35.6); MEAN CORPUSCULAR VOLUME 101.8 fL (75.5-95.3); MONOCYTES # (AUTO) 0.8 K/uL (0.1-1.30); MONOCYTES % (AUTO) 9.2 % (0.0-11.0); NEUTROPHILS # (AUTO) 5.8 K/uL (1.8-8.9); NEUTROPHILS % (AUTO) 66.8 % (38.5-71.5); PLATELET COUNT (AUTO) 271 K/uL (179-408); RED BLOOD CELL COUNT(AUTO) 3.18 MIL/uL (3.63-4.92); RED CELL DISTRIBUTION WIDTH 20.4 % (12.3-17.7); WHITE BLOOD COUNT (AUTO) 8.7 K/uL (3.8-11.8)
[2022-10-19] MEDS: ONDANSETRON 4 MG/2 ML VIAL IV PRN (10:14)
[2022-10-19] MEDS ORDERED: PROT30LI PO (11:19)
[2022-10-19] MEDS ORDERED: DOXY100T2 PO (11:19)
[2022-10-19 11:37] VITALS: BP 124/66; TEMP 97.6; O2SAT 94
== END 2022-10-19 13:45 | DRG 871 ==
LOC: ER 09:02 → MEDSURG3 10:57 → TELE3 12:26 → TELE-TD3 16:38 → TELE3 10-15 15:50 → MEDSURG3 10-18 10:33
PROVIDERS: ADMIT Internal Medicine; ATTEND Nurse Practitioner Acute Care
PROC: 05H533Z Insertion of Infusion Device into Right Subclavian Vein, Percutaneous Approach (ICD-10-PCS; principal; 2022-10-15)
PROC: B546ZZA Ultrasonography of Right Subclavian Vein, Guidance (ICD-10-PCS; 2022-10-15)
DX: A41.9 Sepsis, unspecified organism (principal); E43 Unspecified severe protein-calorie malnutrition; G92.8 Other toxic encephalopathy; N17.0 Acute kidney failure with tubular necrosis; I50.31 Acute diastolic (congestive) heart failure; B37.49 Other urogenital candidiasis; D68.69 Other thrombophilia; E87.20 Acidosis, unspecified; I48.20 Chronic atrial fibrillation, unspecified; L03.116 Cellulitis of left lower limb; L03.115 Cellulitis of right lower limb; I13.0 Hypertensive heart and chronic kidney disease with heart failure and stage 1 through stage 4 chronic kidney disease, or unspecified chronic kidney disease; F33.3 Major depressive disorder, recurrent, severe with psychotic symptoms; I87.313 Chronic venous hypertension (idiopathic) with ulcer of bilateral lower extremity; L97.828 Non-pressure chronic ulcer of other part of left lower leg with other specified severity; L97.818 Non-pressure chronic ulcer of other part of right lower leg with other specified severity; Z68.41 Body mass index [BMI] 40.0-44.9, adult; Z74.09 Other reduced mobility; E03.9 Hypothyroidism, unspecified; E66.01 Morbid (severe) obesity due to excess calories; E78.5 Hyperlipidemia, unspecified; F41.9 Anxiety disorder, unspecified; G89.29 Other chronic pain; I25.10 Atherosclerotic heart disease of native coronary artery without angina pectoris; I27.20 Pulmonary hypertension, unspecified; J44.9 Chronic obstructive pulmonary disease, unspecified; Z79.01 Long term (current) use of anticoagulants; Z98.1 Arthrodesis status; E11.22 Type 2 diabetes mellitus with diabetic chronic kidney disease; Z79.84 Long term (current) use of oral hypoglycemic drugs; R53.1 Weakness; F39 Unspecified mood [affective] disorder; D64.9 Anemia, unspecified; M89.8X9 Other specified disorders of bone, unspecified site; F19.10 Other psychoactive substance abuse, uncomplicated; N18.2 Chronic kidney disease, stage 2 (mild); Z79.899 Other long term (current) drug therapy
CPT/HCPCS: 36415; 71045; 83605; 83735; 83970; 84100; 84155; 84165; 84300; 84484; 85025; 87040; 93005; A4663; A6213; G0378; J0282; J1450; J2358; J2405; J2543; J3370; J7050; J7060; J8499